=== PATIENT | male | born 1965 | race Two or more races ===

== ENCOUNTER 2021-11-27 12:53 | Inpatient (IN) | payer OTHER ==
[2021-11-27] MEDS ORDERED: ACETAMINOPHEN 325 MG TABLET (FP) PO PRN (14:27)
[2021-11-27] MEDS ORDERED: MAGNESIUM CITRATE 300 ML BOTTLE PO PRN (14:27)
[2021-11-27] MEDS ORDERED: MAGNESIUM HYDROX 2400MG/30ML ORAL SUSPENSION 30 ML CUP PO PRN (14:27)
[2021-11-27] MEDS ORDERED: DICYCLOMINE HCL 10 MG CAPSULE PO PRN (14:27)
[2021-11-27] MEDS ORDERED: methaDONE HCL 10 MG TABLET (FOR DETOX USE ONLY) PO ONE (14:27)
[2021-11-27] MEDS ORDERED: NALOXONE HCL (KLOXXADO) 8 MG SPRAY NS PRN (14:27)
[2021-11-27] MEDS ORDERED: MAG HYDROX/AL HYDROX/SIMETH 30 ML UNIT-DOSE CUP PO PRN (14:27)
[2021-11-27] MEDS ORDERED: ONDANSETRON *ODT* 4 MG TABLET SL PRN (14:27)
[2021-11-27] MEDS ORDERED: BISMUTH SUBSALICYLATE 262 MG/15 ML BTL PO PRN (14:27)
[2021-11-27] MEDS ORDERED: LOPERAMIDE HCL 2 MG CAPSULE PO PRN (14:27)
[2021-11-27] MEDS ORDERED: NICOTINE 10 MG CARTRIDGE (INHALER) IH PRN (14:27)
[2021-11-27 15:44] VITALS: BMI 18.2
[2021-11-27] MEDS: hydrOXYzine PAMOATE 25 MG CAPSULE (FP) PO SCH ×2 (18:21→22:32)
[2021-11-27] MEDS: diazePAM 5 MG TABLET PO SCH ×2 (18:21→22:32)
[2021-11-27] MEDS: ACETAMINOPHEN 325 MG TABLET (FP) PO PRN (18:22)
[2021-11-27] MEDS: cloNIDine HCL 0.1 MG TABLET PO PRN (18:22)
[2021-11-27] MEDS: THIAMINE HCL 100 MG TABLET (FP) PO SCH (22:32)
[2021-11-27] MEDS: MELATONIN 5 MG TABLETS PO SCH (22:32)
[2021-11-28] MEDS: hydrOXYzine PAMOATE 25 MG CAPSULE (FP) PO SCH ×5 (06:33→22:37)
[2021-11-28] MEDS: diazePAM 5 MG TABLET PO SCH ×4 (06:33→22:37)
[2021-11-28] MEDS: cloNIDine HCL 0.1 MG TABLET PO PRN (06:34)
[2021-11-28] MEDS ORDERED: methaDONE HCL 10 MG TABLET (FOR DETOX USE ONLY) ONE (09:41)
[2021-11-28 09:49] LABS: HEMATOCRIT 36.1 % (35.4-49); MCH 30.5 pg (25.7-33.7); MCHC 33.3 g/dl (32.0-35.9); MEAN CELL VOLUME 91.8 fl (80-96); MEAN PLT VOLUME 9.9 fl (7.5-11.1); PLATELET COUNT 167 10^3/uL (134-434); RBC 3.93 M/mm3 (4.00-5.60); WHITE BLOOD COUNT 9.2 K/mm3 (4.0-10.0)
[2021-11-28 10:01] LABS: ALBUMIN 2.5 g/dl (3.4-5.0); CALCIUM 8.2 mg/dL (8.5-10.1); CREATININE 0.9 mg/dL (0.55-1.3)
[2021-11-28 10:02] LABS: BILIRUBIN,TOTAL 0.3 mg/dL (0.2-1); TOT PROT 5.6 g/dl (6.4-8.2)
[2021-11-28] MEDS: PRENATAL VITAMINS W/ FOLIC ACID TABLET (FP) PO SCH (10:33)
[2021-11-28] MEDS: CALCIUM 500MG/VIT-D 200 UNITS COMBO TABLET (FP) PO SCH ×2 (14:19→22:37)
[2021-11-28] MEDS: ACETAMINOPHEN 325 MG TABLET (FP) PO PRN (17:34)
[2021-11-28] MEDS: METHOCARBAMOL 500 MG TABLET PO PRN (17:35)
[2021-11-28] MEDS: MELATONIN 5 MG TABLETS PO SCH (22:37)
[2021-11-28] MEDS: THIAMINE HCL 100 MG TABLET (FP) PO SCH (22:37)
[2021-11-28] MEDS: IBUPROFEN 400 MG TABLET (FP) PO PRN (22:38)
[2021-11-29 06:06] LABS: SARS-CoV-2 NAA Not Detected (Not Detected)
[2021-11-29] MEDS: diazePAM 5 MG TABLET PO SCH ×3 (06:17→22:12)
[2021-11-29] MEDS: hydrOXYzine PAMOATE 25 MG CAPSULE (FP) PO SCH ×5 (06:18→22:12)
[2021-11-29] MEDS ORDERED: methaDONE HCL 10 MG TABLET (FOR DETOX USE ONLY) PO ONE (10:00)
[2021-11-29] MEDS: CALCIUM 500MG/VIT-D 200 UNITS COMBO TABLET (FP) PO SCH ×2 (10:05→22:12)
[2021-11-29] MEDS: PRENATAL VITAMINS W/ FOLIC ACID TABLET (FP) PO SCH (10:05)
[2021-11-29] MEDS: guaiFENesin 200 MG/10 ML 10 ML UNIT-DOSE CUPS PO PRN ×3 (11:23→22:13)
[2021-11-29] MEDS: diazePAM 5 MG TABLET PO PRN (17:48)
[2021-11-29] MEDS: ACETAMINOPHEN 325 MG TABLET (FP) PO PRN (17:48)
[2021-11-29] MEDS: METHOCARBAMOL 500 MG TABLET PO PRN (19:17)
[2021-11-29] MEDS: THIAMINE HCL 100 MG TABLET (FP) PO SCH (22:12)
[2021-11-29] MEDS: MELATONIN 5 MG TABLETS PO SCH (22:12)
[2021-11-30] MEDS: hydrOXYzine PAMOATE 25 MG CAPSULE (FP) PO SCH ×5 (05:46→22:18)
[2021-11-30] MEDS: diazePAM 5 MG TABLET PO SCH ×2 (05:46→17:19)
[2021-11-30] MEDS: diazePAM 5 MG TABLET PO PRN (07:34)
[2021-11-30] MEDS: METHOCARBAMOL 500 MG TABLET PO PRN ×2 (07:34→22:18)
[2021-11-30] MEDS ORDERED: methaDONE HCL 10 MG TABLET (FOR DETOX USE ONLY) ONE (10:14)
[2021-11-30] MEDS: CALCIUM 500MG/VIT-D 200 UNITS COMBO TABLET (FP) PO SCH ×2 (10:16→22:18)
[2021-11-30] MEDS: PRENATAL VITAMINS W/ FOLIC ACID TABLET (FP) PO SCH (10:17)
[2021-11-30] MEDS: guaiFENesin 200 MG/10 ML 10 ML UNIT-DOSE CUPS PO PRN ×2 (15:15→19:04)
[2021-11-30] MEDS: BENZOCAINE/MENTHOL (CHLORASEPTIC ) LOZENGE MM PRN ×2 (15:16→19:04)
[2021-11-30] MEDS: MELATONIN 5 MG TABLETS PO SCH (22:18)
[2021-11-30] MEDS: THIAMINE HCL 100 MG TABLET (FP) PO SCH (22:18)
[2021-11-30] MEDS: IBUPROFEN 400 MG TABLET (FP) PO PRN (22:19)
[2021-12-01] MEDS: hydrOXYzine PAMOATE 25 MG CAPSULE (FP) PO SCH ×2 (05:11→10:05)
[2021-12-01] MEDS: guaiFENesin 200 MG/10 ML 10 ML UNIT-DOSE CUPS PO PRN ×4 (05:13→22:06)
[2021-12-01] MEDS: BENZOCAINE/MENTHOL (CHLORASEPTIC ) LOZENGE MM PRN ×3 (05:13→16:36)
[2021-12-01] MEDS ORDERED: diazePAM 5 MG TABLET PO ONE (06:00)
[2021-12-01] MEDS ORDERED: methaDONE HCL 10 MG TABLET (FOR DETOX USE ONLY) PO ONE (10:00)
[2021-12-01] MEDS: PRENATAL VITAMINS W/ FOLIC ACID TABLET (FP) PO SCH (10:05)
[2021-12-01] MEDS: CALCIUM 500MG/VIT-D 200 UNITS COMBO TABLET (FP) PO SCH ×2 (10:05→22:06)
[2021-12-01] MEDS: diazePAM 5 MG TABLET PO PRN ×2 (12:20→18:34)
[2021-12-01] MEDS: hydrOXYzine PAMOATE 25 MG CAPSULE (FP) PO PRN ×2 (16:36→22:06)
[2021-12-01] MEDS: MELATONIN 5 MG TABLETS PO SCH (22:06)
[2021-12-01] MEDS: METHOCARBAMOL 500 MG TABLET PO PRN (22:06)
[2021-12-01] MEDS: THIAMINE HCL 100 MG TABLET (FP) PO SCH (22:06)
[2021-12-01] MEDS: IBUPROFEN 400 MG TABLET (FP) PO PRN (22:06)
[2021-12-02] MEDS: diazePAM 5 MG TABLET PO PRN ×2 (02:32→06:14)
[2021-12-02] MEDS: METHOCARBAMOL 500 MG TABLET PO PRN (09:44)
[2021-12-02] MEDS: CALCIUM 500MG/VIT-D 200 UNITS COMBO TABLET (FP) PO SCH (09:45)
[2021-12-02] MEDS: hydrOXYzine PAMOATE 25 MG CAPSULE (FP) PO PRN (09:45)
[2021-12-02] MEDS: PRENATAL VITAMINS W/ FOLIC ACID TABLET (FP) PO SCH (09:45)
[2021-12-02 12:32] VITALS: BP 114/66; PULSE 74; TEMP 97.8
== END 2021-12-02 12:50 | disposition other institution (70) | DRG 773 ==
LOC: YASAS 12:53 → Y3N 17:45
PROVIDERS: ADMIT Allergy & Immunology; ATTEND Allergy & Immunology
PROC: HZ2ZZZZ Detoxification Services for Substance Abuse Treatment (ICD-10-PCS; principal; 2021-11-27)
DX: F11.23 Opioid dependence with withdrawal (principal); F13.230 Sedative, hypnotic or anxiolytic dependence with withdrawal, uncomplicated; F10.230 Alcohol dependence with withdrawal, uncomplicated; F17.210 Nicotine dependence, cigarettes, uncomplicated; I10 Essential (primary) hypertension; R63.4 Abnormal weight loss; Z68.1 Body mass index [BMI] 19.9 or less, adult; Z86.11 Personal history of tuberculosis; Z87.19 Personal history of other diseases of the digestive system; Z88.8 Allergy status to other drugs, medicaments and biological substances
CPT/HCPCS: 36415; 71046-TC-FY; 80053; 85027; 86780; 87811; 93005; 93010; C9803-CS; J0735; U0003; U0005

== ENCOUNTER 2021-12-02 12:58 | Inpatient (IN) | payer OTHER ==
[2021-12-02] MEDS ORDERED: MAG HYDROX/AL HYDROX/SIMETH 30 ML UNIT-DOSE CUP PO PRN (15:07)
[2021-12-02] MEDS ORDERED: MAGNESIUM CITRATE 300 ML BOTTLE PO PRN (15:07)
[2021-12-02] MEDS ORDERED: ACETAMINOPHEN 325 MG TABLET (FP) PO PRN (15:07)
[2021-12-02] MEDS ORDERED: LOPERAMIDE HCL 2 MG CAPSULE PO PRN (15:07)
[2021-12-02] MEDS ORDERED: P-EPHED 60MG/TRIPROLIDI 2.5MG TABLET PO PRN (15:07)
[2021-12-02] MEDS ORDERED: MAGNESIUM HYDROX 2400MG/30ML ORAL SUSPENSION 30 ML CUP PO PRN (15:07)
[2021-12-02] MEDS: hydrOXYzine PAMOATE 25 MG CAPSULE (FP) PO PRN ×2 (15:26→21:33)
[2021-12-02] MEDS: MELATONIN 5 MG TABLETS PO SCH (21:32)
[2021-12-02] MEDS: THIAMINE HCL 100 MG TABLET (FP) PO SCH (21:32)
[2021-12-02] MEDS: CALCIUM 500MG/VIT-D 200 UNITS COMBO TABLET (FP) PO SCH (22:01)
[2021-12-02] MEDS: guaiFENesin 200 MG/10 ML 10 ML UNIT-DOSE CUPS PO PRN (22:03)
[2021-12-02] MEDS: BENZOCAINE/MENTHOL (CHLORASEPTIC ) LOZENGE MM PRN (22:04)
[2021-12-03] MEDS: hydrOXYzine PAMOATE 25 MG CAPSULE (FP) PO PRN (06:19)
[2021-12-03] MEDS: guaiFENesin 200 MG/10 ML 10 ML UNIT-DOSE CUPS PO PRN (06:20)
[2021-12-03] MEDS: PRENATAL VITAMINS W/ FOLIC ACID TABLET (FP) PO SCH (10:30)
[2021-12-03] MEDS: CALCIUM 500MG/VIT-D 200 UNITS COMBO TABLET (FP) PO SCH ×2 (10:31→21:50)
[2021-12-03] MEDS: hydrOXYzine PAMOATE 50 MG CAPSULE (FP) PO PRN ×2 (10:33→21:40)
[2021-12-03] MEDS: NICOTINE 10 MG CARTRIDGE (INHALER) IH PRN (12:30)
[2021-12-03] MEDS: MELATONIN 5 MG TABLETS PO SCH (21:37)
[2021-12-03] MEDS: THIAMINE HCL 100 MG TABLET (FP) PO SCH (21:37)
[2021-12-03] MEDS: SUVOREXANT 10 MG TABLET PO PRN (21:39)
[2021-12-04] MEDS: PRENATAL VITAMINS W/ FOLIC ACID TABLET (FP) PO SCH (10:23)
[2021-12-04] MEDS: hydrOXYzine PAMOATE 50 MG CAPSULE (FP) PO PRN ×2 (10:23→18:51)
[2021-12-04] MEDS: CALCIUM 500MG/VIT-D 200 UNITS COMBO TABLET (FP) PO SCH ×2 (10:44→21:03)
[2021-12-04] MEDS ORDERED: BUPRENORPHINE HCL 75 MCG FILM BC ONE ×2 (15:00)
[2021-12-04] MEDS: MELATONIN 5 MG TABLETS PO SCH (21:03)
[2021-12-04] MEDS: THIAMINE HCL 100 MG TABLET (FP) PO SCH (21:04)
[2021-12-04] MEDS: SUVOREXANT 10 MG TABLET PO PRN (21:08)
[2021-12-05] MEDS: hydrOXYzine PAMOATE 50 MG CAPSULE (FP) PO PRN ×3 (01:43→21:37)
[2021-12-05] MEDS: PRENATAL VITAMINS W/ FOLIC ACID TABLET (FP) PO SCH (10:24)
[2021-12-05] MEDS: CALCIUM 500MG/VIT-D 200 UNITS COMBO TABLET (FP) PO SCH ×2 (10:25→21:37)
[2021-12-05] MEDS ORDERED: BUPRENORPHINE HCL 450 MCG FILM BC ONE (10:30)
[2021-12-05 10:39] LABS: CALCIUM 8.9 mg/dL (8.5-10.1)
[2021-12-05 10:40] LABS: INR 1.2 (0.83-1.09); PROTHROMBIN TIME (PATIENT) 13.8 SEC (9.7-13.0)
[2021-12-05 10:43] LABS: CREATININE 1.1 mg/dL (0.55-1.3)
[2021-12-05 10:44] LABS: TOT PROT 7.5 g/dl (6.4-8.2)
[2021-12-05 10:45] LABS: BILIRUBIN,TOTAL 0.2 mg/dL (0.2-1)
[2021-12-05] MEDS: guaiFENesin 200 MG/10 ML 10 ML UNIT-DOSE CUPS PO PRN ×2 (14:50→21:39)
[2021-12-05] MEDS: BENZOCAINE/MENTHOL (CHLORASEPTIC ) LOZENGE MM PRN (14:51)
[2021-12-05] MEDS: THIAMINE HCL 100 MG TABLET (FP) PO SCH (21:37)
[2021-12-05] MEDS: MELATONIN 5 MG TABLETS PO SCH (21:37)
[2021-12-06] MEDS: hydrOXYzine PAMOATE 50 MG CAPSULE (FP) PO PRN ×3 (01:07→21:31)
[2021-12-06] MEDS: IBUPROFEN 400 MG TABLET (FP) PO PRN (01:07)
[2021-12-06] MEDS ORDERED: BUPRENORPHINE/NALOXONE 2 MG/0.5 MG FILM PACKET SL SCH (10:00)
[2021-12-06] MEDS: CALCIUM 500MG/VIT-D 200 UNITS COMBO TABLET (FP) PO SCH ×2 (10:23→21:31)
[2021-12-06] MEDS: PRENATAL VITAMINS W/ FOLIC ACID TABLET (FP) PO SCH (10:23)
[2021-12-06] MEDS: THIAMINE HCL 100 MG TABLET (FP) PO SCH (21:29)
[2021-12-06] MEDS: MELATONIN 5 MG TABLETS PO SCH (21:29)
[2021-12-07] MEDS: BUPRENORPHINE/NALOXONE 4 MG/1 MG FILM PACKET SL SCH (09:58)
[2021-12-07] MEDS: PRENATAL VITAMINS W/ FOLIC ACID TABLET (FP) PO SCH (09:58)
[2021-12-07] MEDS: CALCIUM 500MG/VIT-D 200 UNITS COMBO TABLET (FP) PO SCH ×2 (09:58→21:33)
[2021-12-07] MEDS: IBUPROFEN 400 MG TABLET (FP) PO PRN (15:29)
[2021-12-07] MEDS: hydrOXYzine PAMOATE 50 MG CAPSULE (FP) PO PRN ×2 (15:29→21:35)
[2021-12-07] MEDS: THIAMINE HCL 100 MG TABLET (FP) PO SCH (21:33)
[2021-12-07] MEDS: SUVOREXANT 10 MG TABLET PO PRN (21:35)
[2021-12-07] MEDS: MELATONIN 5 MG TABLETS PO SCH (21:38)
[2021-12-08 00:06] LABS: SARS-CoV-2 NAA Not Detected (Not Detected)
[2021-12-08] MEDS: BUPRENORPHINE/NALOXONE 4 MG/1 MG FILM PACKET SL SCH (09:56)
[2021-12-08] MEDS: PRENATAL VITAMINS W/ FOLIC ACID TABLET (FP) PO SCH (09:57)
[2021-12-08] MEDS: CALCIUM 500MG/VIT-D 200 UNITS COMBO TABLET (FP) PO SCH ×2 (09:57→21:29)
[2021-12-08] MEDS: hydrOXYzine PAMOATE 50 MG CAPSULE (FP) PO PRN ×2 (09:58→21:31)
[2021-12-08] MEDS: THIAMINE HCL 100 MG TABLET (FP) PO SCH (21:29)
[2021-12-08] MEDS: MELATONIN 5 MG TABLETS PO SCH (21:29)
[2021-12-08] MEDS: SUVOREXANT 10 MG TABLET PO PRN (21:30)
[2021-12-09] MEDS: BUPRENORPHINE/NALOXONE 4 MG/1 MG FILM PACKET SL SCH (10:23)
[2021-12-09] MEDS: CALCIUM 500MG/VIT-D 200 UNITS COMBO TABLET (FP) PO SCH ×2 (10:23→21:46)
[2021-12-09] MEDS: PRENATAL VITAMINS W/ FOLIC ACID TABLET (FP) PO SCH (10:23)
[2021-12-09] MEDS: hydrOXYzine PAMOATE 50 MG CAPSULE (FP) PO PRN ×2 (10:24→21:47)
[2021-12-09] MEDS: MELATONIN 5 MG TABLETS PO SCH (21:47)
[2021-12-09] MEDS: THIAMINE HCL 100 MG TABLET (FP) PO SCH (21:47)
[2021-12-09] MEDS: SUVOREXANT 10 MG TABLET PO PRN (21:47)
[2021-12-10] MEDS: CALCIUM 500MG/VIT-D 200 UNITS COMBO TABLET (FP) PO SCH ×2 (09:58→21:25)
[2021-12-10] MEDS: PRENATAL VITAMINS W/ FOLIC ACID TABLET (FP) PO SCH (09:58)
[2021-12-10] MEDS: NICOTINE 10 MG CARTRIDGE (INHALER) IH PRN (09:59)
[2021-12-10] MEDS: BUPRENORPHINE/NALOXONE 8 MG/2 MG FILM PACKET SL SCH (09:59)
[2021-12-10] MEDS: hydrOXYzine PAMOATE 50 MG CAPSULE (FP) PO PRN ×2 (10:00→21:27)
[2021-12-10] MEDS: THIAMINE HCL 100 MG TABLET (FP) PO SCH (21:25)
[2021-12-10] MEDS: MELATONIN 5 MG TABLETS PO SCH (21:25)
[2021-12-10] MEDS: SUVOREXANT 10 MG TABLET PO PRN (21:27)
[2021-12-11] MEDS: CALCIUM 500MG/VIT-D 200 UNITS COMBO TABLET (FP) PO SCH ×2 (10:05→21:32)
[2021-12-11] MEDS: PRENATAL VITAMINS W/ FOLIC ACID TABLET (FP) PO SCH (10:05)
[2021-12-11] MEDS: BUPRENORPHINE/NALOXONE 8 MG/2 MG FILM PACKET SL SCH (10:05)
[2021-12-11] MEDS: hydrOXYzine PAMOATE 50 MG CAPSULE (FP) PO PRN ×2 (10:06→21:36)
[2021-12-11] MEDS: MELATONIN 5 MG TABLETS PO SCH (21:32)
[2021-12-11] MEDS: THIAMINE HCL 100 MG TABLET (FP) PO SCH (21:32)
[2021-12-11] MEDS: SUVOREXANT 10 MG TABLET PO PRN (21:36)
[2021-12-12] MEDS: PRENATAL VITAMINS W/ FOLIC ACID TABLET (FP) PO SCH (10:15)
[2021-12-12] MEDS: CALCIUM 500MG/VIT-D 200 UNITS COMBO TABLET (FP) PO SCH ×2 (10:15→21:26)
[2021-12-12] MEDS: BUPRENORPHINE/NALOXONE 8 MG/2 MG FILM PACKET SL SCH (10:17)
[2021-12-12] MEDS: hydrOXYzine PAMOATE 50 MG CAPSULE (FP) PO PRN ×2 (10:17→21:27)
[2021-12-12] MEDS: THIAMINE HCL 100 MG TABLET (FP) PO SCH (21:26)
[2021-12-12] MEDS: MELATONIN 5 MG TABLETS PO SCH (21:28)
[2021-12-12] MEDS: SUVOREXANT 10 MG TABLET PO PRN (21:28)
[2021-12-13] MEDS: hydrOXYzine PAMOATE 50 MG CAPSULE (FP) PO PRN ×2 (10:12→21:22)
[2021-12-13] MEDS: CALCIUM 500MG/VIT-D 200 UNITS COMBO TABLET (FP) PO SCH ×2 (10:12→21:20)
[2021-12-13] MEDS: PRENATAL VITAMINS W/ FOLIC ACID TABLET (FP) PO SCH (10:12)
[2021-12-13] MEDS: BUPRENORPHINE/NALOXONE 8 MG/2 MG FILM PACKET SL SCH (10:12)
[2021-12-13] MEDS: MELATONIN 5 MG TABLETS PO SCH (21:20)
[2021-12-13] MEDS: THIAMINE HCL 100 MG TABLET (FP) PO SCH (21:20)
[2021-12-13] MEDS: SUVOREXANT 10 MG TABLET PO PRN (21:22)
[2021-12-14] MEDS: PRENATAL VITAMINS W/ FOLIC ACID TABLET (FP) PO SCH (10:20)
[2021-12-14] MEDS: CALCIUM 500MG/VIT-D 200 UNITS COMBO TABLET (FP) PO SCH ×2 (10:20→22:04)
[2021-12-14] MEDS: hydrOXYzine PAMOATE 50 MG CAPSULE (FP) PO PRN ×2 (10:21→22:04)
[2021-12-14] MEDS: BUPRENORPHINE/NALOXONE 8 MG/2 MG FILM PACKET SL SCH (10:21)
[2021-12-14] MEDS: SUVOREXANT 10 MG TABLET PO PRN (22:04)
[2021-12-14] MEDS: MELATONIN 5 MG TABLETS PO SCH (22:04)
[2021-12-14] MEDS: THIAMINE HCL 100 MG TABLET (FP) PO SCH (22:04)
[2021-12-15] MEDS: PRENATAL VITAMINS W/ FOLIC ACID TABLET (FP) PO SCH (10:20)
[2021-12-15] MEDS: BUPRENORPHINE/NALOXONE 8 MG/2 MG FILM PACKET SL SCH (10:21)
[2021-12-15] MEDS: CALCIUM 500MG/VIT-D 200 UNITS COMBO TABLET (FP) PO SCH ×2 (10:21→22:18)
[2021-12-15] MEDS: NICOTINE 10 MG CARTRIDGE (INHALER) IH PRN (10:21)
[2021-12-15] MEDS: hydrOXYzine PAMOATE 50 MG CAPSULE (FP) PO PRN ×2 (10:22→22:19)
[2021-12-15] MEDS ORDERED: hydrOXYzine PAMOATE 25 MG CAPSULE (FP) PO ONE (10:57)
[2021-12-15] MEDS: MELATONIN 5 MG TABLETS PO SCH (22:17)
[2021-12-15] MEDS: THIAMINE HCL 100 MG TABLET (FP) PO SCH (22:18)
[2021-12-16] MEDS: BUPRENORPHINE/NALOXONE 8 MG/2 MG FILM PACKET SL SCH (10:24)
[2021-12-16] MEDS: PRENATAL VITAMINS W/ FOLIC ACID TABLET (FP) PO SCH (10:24)
[2021-12-16] MEDS: CALCIUM 500MG/VIT-D 200 UNITS COMBO TABLET (FP) PO SCH ×2 (10:24→21:40)
[2021-12-16] MEDS ORDERED: hydrOXYzine PAMOATE 25 MG CAPSULE (FP) PO ONE (10:25)
[2021-12-16] MEDS: hydrOXYzine PAMOATE 50 MG CAPSULE (FP) PO PRN ×2 (10:25→21:40)
[2021-12-16] MEDS: MELATONIN 5 MG TABLETS PO SCH (21:40)
[2021-12-16] MEDS: THIAMINE HCL 100 MG TABLET (FP) PO SCH (21:40)
[2021-12-16] MEDS: SUVOREXANT 10 MG TABLET PO PRN (21:40)
[2021-12-17] MEDS: CALCIUM 500MG/VIT-D 200 UNITS COMBO TABLET (FP) PO SCH ×2 (10:14→22:05)
[2021-12-17] MEDS: BUPRENORPHINE/NALOXONE 8 MG/2 MG FILM PACKET SL SCH (10:14)
[2021-12-17] MEDS: PRENATAL VITAMINS W/ FOLIC ACID TABLET (FP) PO SCH (10:14)
[2021-12-17] MEDS: hydrOXYzine PAMOATE 50 MG CAPSULE (FP) PO PRN ×2 (10:15→22:04)
[2021-12-17] MEDS: MELATONIN 5 MG TABLETS PO SCH (22:04)
[2021-12-17] MEDS: NICOTINE 10 MG CARTRIDGE (INHALER) IH PRN (22:04)
[2021-12-17] MEDS: THIAMINE HCL 100 MG TABLET (FP) PO SCH (22:05)
[2021-12-17] MEDS: SUVOREXANT 10 MG TABLET PO PRN (22:05)
[2021-12-18] MEDS: PRENATAL VITAMINS W/ FOLIC ACID TABLET (FP) PO SCH (10:03)
[2021-12-18] MEDS: BUPRENORPHINE/NALOXONE 8 MG/2 MG FILM PACKET SL SCH (10:04)
[2021-12-18] MEDS: CALCIUM 500MG/VIT-D 200 UNITS COMBO TABLET (FP) PO SCH ×2 (10:04→21:30)
[2021-12-18] MEDS: hydrOXYzine PAMOATE 50 MG CAPSULE (FP) PO PRN ×2 (10:04→21:31)
[2021-12-18] MEDS: NICOTINE 10 MG CARTRIDGE (INHALER) IH PRN (21:29)
[2021-12-18] MEDS: MELATONIN 5 MG TABLETS PO SCH (21:29)
[2021-12-18] MEDS: THIAMINE HCL 100 MG TABLET (FP) PO SCH (21:29)
[2021-12-18] MEDS: SUVOREXANT 10 MG TABLET PO PRN (21:30)
[2021-12-19] MEDS: PRENATAL VITAMINS W/ FOLIC ACID TABLET (FP) PO SCH (10:35)
[2021-12-19] MEDS: hydrOXYzine PAMOATE 50 MG CAPSULE (FP) PO PRN ×2 (10:36→21:39)
[2021-12-19] MEDS: CALCIUM 500MG/VIT-D 200 UNITS COMBO TABLET (FP) PO SCH ×2 (10:36→21:39)
[2021-12-19] MEDS: BUPRENORPHINE/NALOXONE 8 MG/2 MG FILM PACKET SL SCH (10:37)
[2021-12-19] MEDS: MELATONIN 5 MG TABLETS PO SCH (21:38)
[2021-12-19] MEDS: THIAMINE HCL 100 MG TABLET (FP) PO SCH (21:39)
[2021-12-19] MEDS: SUVOREXANT 10 MG TABLET PO PRN (21:40)
[2021-12-20] MEDS: BUPRENORPHINE/NALOXONE 8 MG/2 MG FILM PACKET SL SCH (10:07)
[2021-12-20] MEDS: CALCIUM 500MG/VIT-D 200 UNITS COMBO TABLET (FP) PO SCH ×2 (10:07→21:59)
[2021-12-20] MEDS: PRENATAL VITAMINS W/ FOLIC ACID TABLET (FP) PO SCH (10:07)
[2021-12-20] MEDS: hydrOXYzine PAMOATE 50 MG CAPSULE (FP) PO PRN ×2 (10:07→21:59)
[2021-12-20] MEDS: MELATONIN 5 MG TABLETS PO SCH (21:56)
[2021-12-20] MEDS: SUVOREXANT 10 MG TABLET PO PRN (21:59)
[2021-12-20] MEDS: NICOTINE 10 MG CARTRIDGE (INHALER) IH PRN (21:59)
[2021-12-20] MEDS: THIAMINE HCL 100 MG TABLET (FP) PO SCH (21:59)
[2021-12-21] MEDS: CALCIUM 500MG/VIT-D 200 UNITS COMBO TABLET (FP) PO SCH ×2 (10:25→21:31)
[2021-12-21] MEDS: PRENATAL VITAMINS W/ FOLIC ACID TABLET (FP) PO SCH (10:25)
[2021-12-21] MEDS: BUPRENORPHINE/NALOXONE 8 MG/2 MG FILM PACKET SL SCH (10:25)
[2021-12-21] MEDS: hydrOXYzine PAMOATE 50 MG CAPSULE (FP) PO PRN ×2 (10:25→21:32)
[2021-12-21] MEDS: THIAMINE HCL 100 MG TABLET (FP) PO SCH (21:31)
[2021-12-21] MEDS: SUVOREXANT 10 MG TABLET PO PRN (21:32)
[2021-12-21] MEDS: MELATONIN 5 MG TABLETS PO SCH (21:33)
[2021-12-22] MEDS: hydrOXYzine PAMOATE 50 MG CAPSULE (FP) PO PRN ×2 (10:08→21:31)
[2021-12-22] MEDS: CALCIUM 500MG/VIT-D 200 UNITS COMBO TABLET (FP) PO SCH ×2 (10:08→21:29)
[2021-12-22] MEDS: PRENATAL VITAMINS W/ FOLIC ACID TABLET (FP) PO SCH (10:08)
[2021-12-22] MEDS: BUPRENORPHINE/NALOXONE 8 MG/2 MG FILM PACKET SL SCH (10:08)
[2021-12-22] MEDS: MELATONIN 5 MG TABLETS PO SCH (21:29)
[2021-12-22] MEDS: THIAMINE HCL 100 MG TABLET (FP) PO SCH (21:30)
[2021-12-22] MEDS: SUVOREXANT 10 MG TABLET PO PRN (21:30)
[2021-12-22] MEDS: NICOTINE 10 MG CARTRIDGE (INHALER) IH PRN (21:31)
[2021-12-23] MEDS ORDERED: hydrOXYzine PAMOATE 25 MG CAPSULE (FP) PO ONE (09:09)
[2021-12-23] MEDS: NICOTINE 10 MG CARTRIDGE (INHALER) IH PRN (10:30)
[2021-12-23] MEDS: hydrOXYzine PAMOATE 50 MG CAPSULE (FP) PO PRN ×2 (10:30→21:52)
[2021-12-23] MEDS: PRENATAL VITAMINS W/ FOLIC ACID TABLET (FP) PO SCH (10:30)
[2021-12-23] MEDS: CALCIUM 500MG/VIT-D 200 UNITS COMBO TABLET (FP) PO SCH ×2 (10:30→21:50)
[2021-12-23] MEDS: BUPRENORPHINE/NALOXONE 8 MG/2 MG FILM PACKET SL SCH (10:31)
[2021-12-23] MEDS: THIAMINE HCL 100 MG TABLET (FP) PO SCH (21:50)
[2021-12-23] MEDS: MELATONIN 5 MG TABLETS PO SCH (21:50)
[2021-12-23] MEDS: SUVOREXANT 10 MG TABLET PO PRN (21:51)
[2021-12-24] MEDS: CALCIUM 500MG/VIT-D 200 UNITS COMBO TABLET (FP) PO SCH ×2 (10:36→21:50)
[2021-12-24] MEDS: PRENATAL VITAMINS W/ FOLIC ACID TABLET (FP) PO SCH (10:36)
[2021-12-24] MEDS: BUPRENORPHINE/NALOXONE 8 MG/2 MG FILM PACKET SL SCH (10:36)
[2021-12-24] MEDS: hydrOXYzine PAMOATE 50 MG CAPSULE (FP) PO PRN ×2 (10:36→21:49)
[2021-12-24] MEDS: NICOTINE 10 MG CARTRIDGE (INHALER) IH PRN (10:37)
[2021-12-24] MEDS: SUVOREXANT 10 MG TABLET PO PRN (21:49)
[2021-12-24] MEDS: MELATONIN 5 MG TABLETS PO SCH (21:50)
[2021-12-24] MEDS: THIAMINE HCL 100 MG TABLET (FP) PO SCH (21:50)
[2021-12-25] MEDS: NICOTINE 10 MG CARTRIDGE (INHALER) IH PRN (10:19)
[2021-12-25] MEDS: hydrOXYzine PAMOATE 50 MG CAPSULE (FP) PO PRN ×2 (10:19→21:41)
[2021-12-25] MEDS: BUPRENORPHINE/NALOXONE 8 MG/2 MG FILM PACKET SL SCH (10:19)
[2021-12-25] MEDS: CALCIUM 500MG/VIT-D 200 UNITS COMBO TABLET (FP) PO SCH ×2 (10:19→21:40)
[2021-12-25] MEDS: PRENATAL VITAMINS W/ FOLIC ACID TABLET (FP) PO SCH (10:19)
[2021-12-25] MEDS: SUVOREXANT 10 MG TABLET PO PRN (21:40)
[2021-12-25] MEDS: MELATONIN 5 MG TABLETS PO SCH (21:40)
[2021-12-25] MEDS: THIAMINE HCL 100 MG TABLET (FP) PO SCH (21:40)
[2021-12-26] MEDS: hydrOXYzine PAMOATE 50 MG CAPSULE (FP) PO PRN ×2 (10:17→21:36)
[2021-12-26] MEDS: PRENATAL VITAMINS W/ FOLIC ACID TABLET (FP) PO SCH (10:17)
[2021-12-26] MEDS: BUPRENORPHINE/NALOXONE 8 MG/2 MG FILM PACKET SL SCH (10:17)
[2021-12-26] MEDS: NICOTINE 10 MG CARTRIDGE (INHALER) IH PRN ×2 (10:17→21:36)
[2021-12-26] MEDS: CALCIUM 500MG/VIT-D 200 UNITS COMBO TABLET (FP) PO SCH ×2 (10:17→21:34)
[2021-12-26] MEDS: THIAMINE HCL 100 MG TABLET (FP) PO SCH (21:34)
[2021-12-26] MEDS: SUVOREXANT 10 MG TABLET PO PRN (21:35)
[2021-12-26] MEDS: MELATONIN 5 MG TABLETS PO SCH (21:36)
[2021-12-27] MEDS: CALCIUM 500MG/VIT-D 200 UNITS COMBO TABLET (FP) PO SCH ×2 (10:15→21:33)
[2021-12-27] MEDS: PRENATAL VITAMINS W/ FOLIC ACID TABLET (FP) PO SCH (10:15)
[2021-12-27] MEDS: hydrOXYzine PAMOATE 50 MG CAPSULE (FP) PO PRN ×2 (10:15→21:34)
[2021-12-27] MEDS: BUPRENORPHINE/NALOXONE 8 MG/2 MG FILM PACKET SL SCH (10:15)
[2021-12-27] MEDS: THIAMINE HCL 100 MG TABLET (FP) PO SCH (21:33)
[2021-12-27] MEDS: MELATONIN 5 MG TABLETS PO SCH (21:33)
[2021-12-27] MEDS: SUVOREXANT 10 MG TABLET PO PRN (21:34)
[2021-12-28] MEDS: PRENATAL VITAMINS W/ FOLIC ACID TABLET (FP) PO SCH (10:22)
[2021-12-28] MEDS: hydrOXYzine PAMOATE 50 MG CAPSULE (FP) PO PRN ×2 (10:22→21:36)
[2021-12-28] MEDS: CALCIUM 500MG/VIT-D 200 UNITS COMBO TABLET (FP) PO SCH ×2 (10:22→21:36)
[2021-12-28] MEDS: BUPRENORPHINE/NALOXONE 8 MG/2 MG FILM PACKET SL SCH (10:22)
[2021-12-28] MEDS: SUVOREXANT 10 MG TABLET PO PRN (21:35)
[2021-12-28] MEDS: MELATONIN 5 MG TABLETS PO SCH (21:36)
[2021-12-28] MEDS: NICOTINE 10 MG CARTRIDGE (INHALER) IH PRN (21:36)
[2021-12-28] MEDS: THIAMINE HCL 100 MG TABLET (FP) PO SCH (21:36)
[2021-12-29] MEDS: PRENATAL VITAMINS W/ FOLIC ACID TABLET (FP) PO SCH (10:04)
[2021-12-29] MEDS: hydrOXYzine PAMOATE 50 MG CAPSULE (FP) PO PRN ×2 (10:05→21:42)
[2021-12-29] MEDS: BUPRENORPHINE/NALOXONE 8 MG/2 MG FILM PACKET SL SCH (10:05)
[2021-12-29] MEDS: CALCIUM 500MG/VIT-D 200 UNITS COMBO TABLET (FP) PO SCH ×2 (10:05→21:42)
[2021-12-29] MEDS: NICOTINE 10 MG CARTRIDGE (INHALER) IH PRN (10:05)
[2021-12-29] MEDS: THIAMINE HCL 100 MG TABLET (FP) PO SCH (21:42)
[2021-12-29] MEDS: MELATONIN 5 MG TABLETS PO SCH (21:42)
[2021-12-29] MEDS: SUVOREXANT 10 MG TABLET PO PRN (21:43)
[2021-12-30 07:11] VITALS: BP 119/77; PULSE 64; TEMP 97.8
[2021-12-30] MEDS: BUPRENORPHINE/NALOXONE 8 MG/2 MG FILM PACKET SL SCH (09:35)
[2021-12-30] MEDS: PRENATAL VITAMINS W/ FOLIC ACID TABLET (FP) PO SCH (09:35)
[2021-12-30] MEDS: CALCIUM 500MG/VIT-D 200 UNITS COMBO TABLET (FP) PO SCH (09:35)
[2021-12-30] MEDS: NICOTINE 10 MG CARTRIDGE (INHALER) IH PRN (09:36)
[2021-12-30] MEDS: hydrOXYzine PAMOATE 50 MG CAPSULE (FP) PO PRN (09:36)
== END 2021-12-30 09:50 | disposition home or self-care (01) | DRG 772 ==
LOC: YASAS 12:58 → Y5N 13:04
PROVIDERS: ADMIT Allergy & Immunology; ATTEND Psychiatry & Neurology Psychiatry
PROC: HZ42ZZZ Group Counseling for Substance Abuse Treatment, Cognitive-Behavioral (ICD-10-PCS; principal; 2021-12-02)
DX: F11.20 Opioid dependence, uncomplicated (principal); F10.20 Alcohol dependence, uncomplicated; F14.20 Cocaine dependence, uncomplicated; F17.210 Nicotine dependence, cigarettes, uncomplicated; F19.280 Other psychoactive substance dependence with psychoactive substance-induced anxiety disorder; F19.282 Other psychoactive substance dependence with psychoactive substance-induced sleep disorder; I10 Essential (primary) hypertension; R74.8 Abnormal levels of other serum enzymes; Z86.11 Personal history of tuberculosis; Z56.0 Unemployment, unspecified
CPT/HCPCS: 36415; 80053; 83036; 85610; C9803-CS; U0003; U0005

== ENCOUNTER 2022-03-05 13:42 | Inpatient (IN) | payer OTHER ==
[2022-03-05 14:24] VITALS: BMI 19.6
[2022-03-05] MEDS ORDERED: IBUPROFEN 400 MG TABLET (FP) PO PRN (16:59)
[2022-03-05] MEDS ORDERED: MAG HYDROX/AL HYDROX/SIMETH 30 ML UNIT-DOSE CUP PO PRN (16:59)
[2022-03-05] MEDS ORDERED: MAGNESIUM CITRATE 300 ML BOTTLE PO PRN (16:59)
[2022-03-05] MEDS ORDERED: BISMUTH SUBSALICYLATE 524 MG/30 ML PO PRN (16:59)
[2022-03-05] MEDS ORDERED: IBUPROFEN 600 MG TABLET (FP) PO PRN (16:59)
[2022-03-05] MEDS ORDERED: BENZOCAINE/MENTHOL (CHLORASEPTIC ) LOZENGE MM PRN (16:59)
[2022-03-05] MEDS ORDERED: ACETAMINOPHEN 325 MG TABLET (FP) PO PRN ×2 (16:59)
[2022-03-05] MEDS ORDERED: DICYCLOMINE HCL 10 MG CAPSULE PO PRN (16:59)
[2022-03-05] MEDS ORDERED: MAGNESIUM HYDROX 2400MG/30ML ORAL SUSPENSION 30 ML CUP PO PRN (16:59)
[2022-03-05] MEDS ORDERED: LOPERAMIDE HCL 2 MG CAPSULE PO PRN (16:59)
[2022-03-05] MEDS ORDERED: NICOTINE POLACRILEX 2 MG GUM BUC PRN (16:59)
[2022-03-05] MEDS ORDERED: NALOXONE HCL 0.4 MG/ML VIAL IM PRN (16:59)
[2022-03-05] MEDS ORDERED: ONDANSETRON *ODT* 4 MG TABLET SL PRN (16:59)
[2022-03-05] MEDS: hydrOXYzine PAMOATE 25 MG CAPSULE (FP) PO PRN ×2 (18:15→22:47)
[2022-03-05] MEDS: METHOCARBAMOL 500 MG TABLET PO PRN (18:15)
[2022-03-05] MEDS: MELATONIN 5 MG TABLETS PO SCH (22:46)
[2022-03-05] MEDS: THIAMINE HCL 100 MG TABLET (FP) PO SCH (22:46)
[2022-03-06] MEDS ORDERED: methaDONE 80 MG, methaDONE 10 MG PO SCH (09:03)
[2022-03-06] MEDS ORDERED: methaDONE HCL 10 MG TABLET PO SCH (09:30)
[2022-03-06] MEDS ORDERED: methaDONE HCL 40 MG DISPERSABLE TABLET ONE (09:45)
[2022-03-06] MEDS ORDERED: methaDONE HCL 10 MG TABLET ONE (09:45)
[2022-03-06] MEDS: NICOTINE 7 MG/24 HOURS TOPICAL PATCH TD SCH (10:20)
[2022-03-06] MEDS: PRENATAL VITAMINS W/ FOLIC ACID TABLET (FP) PO SCH (10:20)
[2022-03-06] MEDS: methaDONE 80 MG, methaDONE 10 MG PO SCH (10:20)
[2022-03-06] MEDS: hydrOXYzine PAMOATE 25 MG CAPSULE (FP) PO PRN (10:22)
[2022-03-06 10:33] LABS: HEMATOCRIT 37.4 % (35.4-49); HEMOGLOBIN 12.6 GM/dL (11.7-16.9); MCHC 33.6 g/dl (32.0-35.9); MEAN CELL VOLUME 92.2 fl (80-96); MEAN PLT VOLUME 9.5 fl (7.5-11.1); PLATELET COUNT 139 10^3/uL (134-434); RBC 4.05 M/mm3 (4.00-5.60); RDW 13.7 % (11.9-15.9); WHITE BLOOD COUNT 4.6 K/mm3 (4.0-10.0)
[2022-03-06 10:47] LABS: CALCIUM 8.8 mg/dL (8.5-10.1)
[2022-03-06 10:49] LABS: BLOOD UREA NITROGEN 17.5 mg/dL (7-18)
[2022-03-06 10:51] LABS: CREATININE 1.2 mg/dL (0.55-1.3)
[2022-03-06 10:52] LABS: BILIRUBIN,TOTAL 0.3 mg/dL (0.2-1); TOT PROT 6.1 g/dl (6.4-8.2)
[2022-03-06] MEDS ORDERED: chlordiazePOXIDE HCL 25 MG CAPSULE PO PRN (11:11)
[2022-03-06] MEDS: chlordiazePOXIDE HCL 25 MG CAPSULE PO SCH ×3 (11:22→22:25)
[2022-03-06] MEDS: MELATONIN 5 MG TABLETS PO SCH (22:25)
[2022-03-06] MEDS: THIAMINE HCL 100 MG TABLET (FP) PO SCH (22:26)
[2022-03-07] MEDS ORDERED: methaDONE HCL 10 MG TABLET ONE (03:20)
[2022-03-07] MEDS ORDERED: methaDONE HCL 40 MG DISPERSABLE TABLET ONE (03:20)
[2022-03-07] MEDS: chlordiazePOXIDE HCL 25 MG CAPSULE PO SCH ×4 (06:16→22:22)
[2022-03-07] MEDS: methaDONE 80 MG, methaDONE 10 MG PO SCH (06:16)
[2022-03-07] MEDS: PRENATAL VITAMINS W/ FOLIC ACID TABLET (FP) PO SCH (10:12)
[2022-03-07] MEDS: NICOTINE 7 MG/24 HOURS TOPICAL PATCH TD SCH (10:13)
[2022-03-07] MEDS: hydrOXYzine PAMOATE 25 MG CAPSULE (FP) PO PRN (18:25)
[2022-03-07] MEDS: THIAMINE HCL 100 MG TABLET (FP) PO SCH (22:22)
[2022-03-07] MEDS: MELATONIN 5 MG TABLETS PO SCH (22:22)
[2022-03-08] MEDS ORDERED: methaDONE HCL 40 MG DISPERSABLE TABLET ONE (03:13)
[2022-03-08] MEDS ORDERED: methaDONE HCL 10 MG TABLET ONE (03:13)
[2022-03-08] MEDS: chlordiazePOXIDE HCL 25 MG CAPSULE PO SCH ×4 (05:31→22:34)
[2022-03-08] MEDS: hydrOXYzine PAMOATE 25 MG CAPSULE (FP) PO PRN ×4 (05:31→22:35)
[2022-03-08] MEDS: methaDONE 80 MG, methaDONE 10 MG PO SCH (05:31)
[2022-03-08] MEDS: METHOCARBAMOL 500 MG TABLET PO PRN (10:39)
[2022-03-08] MEDS: NICOTINE 7 MG/24 HOURS TOPICAL PATCH TD SCH (10:39)
[2022-03-08] MEDS: PRENATAL VITAMINS W/ FOLIC ACID TABLET (FP) PO SCH (10:42)
[2022-03-08] MEDS: THIAMINE HCL 100 MG TABLET (FP) PO SCH (22:34)
[2022-03-08] MEDS: MELATONIN 5 MG TABLETS PO SCH (22:35)
[2022-03-09] MEDS ORDERED: chlordiazePOXIDE HCL 10 MG CAPSULE PO PRN
[2022-03-09] MEDS ORDERED: methaDONE HCL 10 MG TABLET ONE (04:11)
[2022-03-09] MEDS ORDERED: methaDONE HCL 40 MG DISPERSABLE TABLET ONE (04:11)
[2022-03-09] MEDS: methaDONE 80 MG, methaDONE 10 MG PO SCH (05:36)
[2022-03-09] MEDS: chlordiazePOXIDE HCL 10 MG CAPSULE PO SCH ×4 (05:37→22:35)
[2022-03-09] MEDS: PRENATAL VITAMINS W/ FOLIC ACID TABLET (FP) PO SCH (10:13)
[2022-03-09] MEDS: NICOTINE 7 MG/24 HOURS TOPICAL PATCH TD SCH (10:13)
[2022-03-09] MEDS: hydrOXYzine PAMOATE 25 MG CAPSULE (FP) PO PRN ×2 (10:14→22:36)
[2022-03-09] MEDS: MELATONIN 5 MG TABLETS PO SCH (22:36)
[2022-03-09] MEDS: THIAMINE HCL 100 MG TABLET (FP) PO SCH (22:37)
[2022-03-10] MEDS ORDERED: methaDONE HCL 10 MG TABLET ONE (04:47)
[2022-03-10] MEDS ORDERED: methaDONE HCL 40 MG DISPERSABLE TABLET ONE (04:47)
[2022-03-10] MEDS: methaDONE 80 MG, methaDONE 10 MG PO SCH (05:41)
[2022-03-10] MEDS: chlordiazePOXIDE HCL 10 MG CAPSULE PO SCH ×2 (05:42→17:47)
[2022-03-10] MEDS: hydrOXYzine PAMOATE 25 MG CAPSULE (FP) PO PRN ×3 (05:42→22:13)
[2022-03-10] MEDS: NICOTINE 7 MG/24 HOURS TOPICAL PATCH TD SCH (10:29)
[2022-03-10] MEDS: PRENATAL VITAMINS W/ FOLIC ACID TABLET (FP) PO SCH (10:29)
[2022-03-10] MEDS: THIAMINE HCL 100 MG TABLET (FP) PO SCH (22:13)
[2022-03-10] MEDS: MELATONIN 5 MG TABLETS PO SCH (22:13)
[2022-03-10] MEDS: METHOCARBAMOL 500 MG TABLET PO PRN (22:15)
[2022-03-11] MEDS ORDERED: methaDONE HCL 10 MG TABLET ONE (04:02)
[2022-03-11] MEDS ORDERED: methaDONE HCL 40 MG DISPERSABLE TABLET ONE (04:02)
[2022-03-11] MEDS ORDERED: chlordiazePOXIDE HCL 10 MG CAPSULE PO ONE (05:00)
[2022-03-11] MEDS: methaDONE 80 MG, methaDONE 10 MG PO SCH (05:36)
[2022-03-11 05:55] VITALS: PULSE 50; RESP 18
[2022-03-11 09:10] VITALS: BP 107/61; TEMP 97.7
[2022-03-11] MEDS: NICOTINE 7 MG/24 HOURS TOPICAL PATCH TD SCH (11:55)
[2022-03-11] MEDS: PRENATAL VITAMINS W/ FOLIC ACID TABLET (FP) PO SCH (11:56)
== END 2022-03-11 12:24 | disposition other institution (70) | DRG 773 ==
LOC: YASAS 13:42 → UNDOADMIN 16:41 → Y6N 16:41
PROVIDERS: ADMIT Allergy & Immunology; ATTEND Surgery
PROC: HZ2ZZZZ Detoxification Services for Substance Abuse Treatment (ICD-10-PCS; principal; 2022-03-05)
DX: F10.230 Alcohol dependence with withdrawal, uncomplicated (principal); F11.20 Opioid dependence, uncomplicated; F14.10 Cocaine abuse, uncomplicated; F17.213 Nicotine dependence, cigarettes, with withdrawal; I10 Essential (primary) hypertension; Z86.11 Personal history of tuberculosis
CPT/HCPCS: 36415; 80053; 84075; 84460; 85027; 86780; 87811; C9803-CS; U0003; U0005

== ENCOUNTER 2022-03-11 12:05 | Inpatient (IN) | payer OTHER ==
[~2022-03-11 12:05] MED LIST: ACETAMINOPHEN 325 MG TABLET (FP) PO PRN; IBUPROFEN 400 MG TABLET (FP) PO PRN; LOPERAMIDE HCL 2 MG CAPSULE PO PRN; MAG HYDROX/AL HYDROX/SIMETH 30 ML UNIT-DOSE CUP PO PRN; MAGNESIUM CITRATE 300 ML BOTTLE PO PRN; MAGNESIUM HYDROX 2400MG/30ML ORAL SUSPENSION 30 ML CUP PO PRN; NICOTINE 10 MG CARTRIDGE (INHALER) IH PRN; NICOTINE POLACRILEX 2 MG GUM BUC PRN; P-EPHED 60MG/TRIPROLIDI 2.5MG TABLET PO PRN; guaiFENesin 200 MG/10 ML 10 ML UNIT-DOSE CUPS PO PRN
[2022-03-11] MEDS: MELATONIN 5 MG TABLETS PO SCH (21:24)
[2022-03-11] MEDS: THIAMINE HCL 100 MG TABLET (FP) PO SCH (21:24)
[2022-03-12] MEDS ORDERED: methaDONE HCL 10 MG TABLET PO SCH (06:00)
[2022-03-12] MEDS: methaDONE 80 MG, methaDONE 10 MG PO SCH (06:08)
[2022-03-12] MEDS: PRENATAL VITAMINS W/ FOLIC ACID TABLET (FP) PO SCH (09:56)
[2022-03-12] MEDS: hydrOXYzine PAMOATE 25 MG CAPSULE (FP) PO PRN ×2 (09:56→21:09)
[2022-03-12] MEDS: NICOTINE 7 MG/24 HOURS TOPICAL PATCH TD SCH (09:56)
[2022-03-12] MEDS: MELATONIN 5 MG TABLETS PO SCH (21:09)
[2022-03-12] MEDS: THIAMINE HCL 100 MG TABLET (FP) PO SCH (21:09)
[2022-03-13] MEDS: hydrOXYzine PAMOATE 25 MG CAPSULE (FP) PO PRN ×2 (06:18→21:18)
[2022-03-13] MEDS: methaDONE 80 MG, methaDONE 10 MG PO SCH (06:18)
[2022-03-13] MEDS: PRENATAL VITAMINS W/ FOLIC ACID TABLET (FP) PO SCH (09:57)
[2022-03-13] MEDS: NICOTINE 7 MG/24 HOURS TOPICAL PATCH TD SCH (09:57)
[2022-03-13] MEDS: MELATONIN 5 MG TABLETS PO SCH (21:17)
[2022-03-13] MEDS: THIAMINE HCL 100 MG TABLET (FP) PO SCH (21:17)
[2022-03-14] MEDS: hydrOXYzine PAMOATE 25 MG CAPSULE (FP) PO PRN ×2 (06:08→21:29)
[2022-03-14] MEDS: methaDONE 80 MG, methaDONE 10 MG PO SCH (06:08)
[2022-03-14] MEDS: NICOTINE 7 MG/24 HOURS TOPICAL PATCH TD SCH (09:48)
[2022-03-14] MEDS: PRENATAL VITAMINS W/ FOLIC ACID TABLET (FP) PO SCH (09:48)
[2022-03-14] MEDS: THIAMINE HCL 100 MG TABLET (FP) PO SCH (21:29)
[2022-03-14] MEDS: MELATONIN 5 MG TABLETS PO SCH (21:29)
[2022-03-15] MEDS: hydrOXYzine PAMOATE 25 MG CAPSULE (FP) PO PRN (06:14)
[2022-03-15] MEDS: methaDONE 80 MG, methaDONE 10 MG PO SCH (06:14)
[2022-03-15] MEDS: NICOTINE 7 MG/24 HOURS TOPICAL PATCH TD SCH (09:55)
[2022-03-15] MEDS: PRENATAL VITAMINS W/ FOLIC ACID TABLET (FP) PO SCH (09:55)
[2022-03-15] MEDS: MELATONIN 5 MG TABLETS PO SCH (21:10)
[2022-03-15] MEDS: THIAMINE HCL 100 MG TABLET (FP) PO SCH (21:10)
[2022-03-16] MEDS: methaDONE 80 MG, methaDONE 10 MG PO SCH (06:05)
[2022-03-16] MEDS: hydrOXYzine PAMOATE 25 MG CAPSULE (FP) PO PRN ×3 (06:05→21:17)
[2022-03-16] MEDS: NICOTINE 7 MG/24 HOURS TOPICAL PATCH TD SCH (11:20)
[2022-03-16] MEDS: PRENATAL VITAMINS W/ FOLIC ACID TABLET (FP) PO SCH (11:25)
[2022-03-16] MEDS: THIAMINE HCL 100 MG TABLET (FP) PO SCH (21:17)
[2022-03-16] MEDS: MELATONIN 5 MG TABLETS PO SCH (21:17)
[2022-03-17] MEDS: methaDONE 80 MG, methaDONE 10 MG PO SCH (06:16)
[2022-03-17] MEDS: hydrOXYzine PAMOATE 25 MG CAPSULE (FP) PO PRN ×2 (06:16→21:13)
[2022-03-17] MEDS: PRENATAL VITAMINS W/ FOLIC ACID TABLET (FP) PO SCH (09:42)
[2022-03-17] MEDS: NICOTINE 7 MG/24 HOURS TOPICAL PATCH TD SCH (09:42)
[2022-03-17] MEDS: THIAMINE HCL 100 MG TABLET (FP) PO SCH (21:13)
[2022-03-17] MEDS: MELATONIN 5 MG TABLETS PO SCH (21:13)
[2022-03-18] MEDS: methaDONE 80 MG, methaDONE 10 MG PO SCH (06:14)
[2022-03-18] MEDS: hydrOXYzine PAMOATE 25 MG CAPSULE (FP) PO PRN ×2 (06:14→21:13)
[2022-03-18] MEDS: PRENATAL VITAMINS W/ FOLIC ACID TABLET (FP) PO SCH (09:53)
[2022-03-18] MEDS: NICOTINE 7 MG/24 HOURS TOPICAL PATCH TD SCH (09:54)
[2022-03-18] MEDS: THIAMINE HCL 100 MG TABLET (FP) PO SCH (21:13)
[2022-03-18] MEDS: MELATONIN 5 MG TABLETS PO SCH (21:13)
[2022-03-19] MEDS: hydrOXYzine PAMOATE 25 MG CAPSULE (FP) PO PRN ×2 (06:15→21:10)
[2022-03-19] MEDS: methaDONE 80 MG, methaDONE 10 MG PO SCH (06:15)
[2022-03-19] MEDS: PRENATAL VITAMINS W/ FOLIC ACID TABLET (FP) PO SCH (09:40)
[2022-03-19] MEDS: NICOTINE 7 MG/24 HOURS TOPICAL PATCH TD SCH (09:41)
[2022-03-19] MEDS: THIAMINE HCL 100 MG TABLET (FP) PO SCH (21:09)
[2022-03-19] MEDS: MELATONIN 5 MG TABLETS PO SCH (21:09)
[2022-03-20] MEDS: methaDONE 80 MG, methaDONE 10 MG PO SCH (06:12)
[2022-03-20] MEDS: hydrOXYzine PAMOATE 25 MG CAPSULE (FP) PO PRN ×2 (06:13→21:05)
[2022-03-20] MEDS: PRENATAL VITAMINS W/ FOLIC ACID TABLET (FP) PO SCH (09:48)
[2022-03-20] MEDS: NICOTINE 7 MG/24 HOURS TOPICAL PATCH TD SCH (09:48)
[2022-03-20] MEDS: MELATONIN 5 MG TABLETS PO SCH (21:05)
[2022-03-20] MEDS: THIAMINE HCL 100 MG TABLET (FP) PO SCH (21:05)
[2022-03-21] MEDS: hydrOXYzine PAMOATE 25 MG CAPSULE (FP) PO PRN ×2 (06:05→21:19)
[2022-03-21] MEDS: methaDONE 80 MG, methaDONE 10 MG PO SCH (06:06)
[2022-03-21] MEDS: PRENATAL VITAMINS W/ FOLIC ACID TABLET (FP) PO SCH (10:02)
[2022-03-21] MEDS: NICOTINE 7 MG/24 HOURS TOPICAL PATCH TD SCH (10:02)
[2022-03-21] MEDS: THIAMINE HCL 100 MG TABLET (FP) PO SCH (21:19)
[2022-03-21] MEDS: MELATONIN 5 MG TABLETS PO SCH (21:19)
[2022-03-22] MEDS: methaDONE 80 MG, methaDONE 10 MG PO SCH (06:13)
[2022-03-22] MEDS: hydrOXYzine PAMOATE 25 MG CAPSULE (FP) PO PRN ×2 (06:14→21:23)
[2022-03-22] MEDS: PRENATAL VITAMINS W/ FOLIC ACID TABLET (FP) PO SCH (09:55)
[2022-03-22] MEDS: NICOTINE 7 MG/24 HOURS TOPICAL PATCH TD SCH (09:56)
[2022-03-22] MEDS: MELATONIN 5 MG TABLETS PO SCH (21:23)
[2022-03-22] MEDS: THIAMINE HCL 100 MG TABLET (FP) PO SCH (21:23)
[2022-03-23] MEDS: methaDONE 80 MG, methaDONE 10 MG PO SCH (06:24)
[2022-03-23] MEDS: hydrOXYzine PAMOATE 25 MG CAPSULE (FP) PO PRN ×2 (06:25→21:35)
[2022-03-23] MEDS: NICOTINE 7 MG/24 HOURS TOPICAL PATCH TD SCH (09:42)
[2022-03-23] MEDS: PRENATAL VITAMINS W/ FOLIC ACID TABLET (FP) PO SCH (09:42)
[2022-03-23] MEDS: THIAMINE HCL 100 MG TABLET (FP) PO SCH (21:34)
[2022-03-23] MEDS: MELATONIN 5 MG TABLETS PO SCH (21:35)
[2022-03-24] MEDS: methaDONE 80 MG, methaDONE 10 MG PO SCH (06:21)
[2022-03-24] MEDS: hydrOXYzine PAMOATE 25 MG CAPSULE (FP) PO PRN ×2 (06:21→21:14)
[2022-03-24] MEDS: PRENATAL VITAMINS W/ FOLIC ACID TABLET (FP) PO SCH (10:04)
[2022-03-24] MEDS: NICOTINE 7 MG/24 HOURS TOPICAL PATCH TD SCH (10:04)
[2022-03-24] MEDS: THIAMINE HCL 100 MG TABLET (FP) PO SCH (21:14)
[2022-03-24] MEDS: MELATONIN 5 MG TABLETS PO SCH (21:14)
[2022-03-25] MEDS: methaDONE 80 MG, methaDONE 10 MG PO SCH (06:35)
[2022-03-25] MEDS: hydrOXYzine PAMOATE 25 MG CAPSULE (FP) PO PRN (06:35)
[2022-03-25 07:11] VITALS: BP 116/76; PULSE 69; RESP 16; TEMP 97
== END 2022-03-25 09:10 | disposition home or self-care (01) | DRG 772 ==
LOC: YASAS 12:05 → Y3E 12:07
PROVIDERS: ADMIT Allergy & Immunology; ATTEND Psychiatry & Neurology Pain Medicine
PROC: HZ42ZZZ Group Counseling for Substance Abuse Treatment, Cognitive-Behavioral (ICD-10-PCS; principal; 2022-03-11)
DX: F10.20 Alcohol dependence, uncomplicated (principal); F11.20 Opioid dependence, uncomplicated; F17.210 Nicotine dependence, cigarettes, uncomplicated; I10 Essential (primary) hypertension; Z86.19 Personal history of other infectious and parasitic diseases

== ENCOUNTER 2022-05-15 10:49 | Inpatient (IN) | payer OTHER ==
[2022-05-15 11:52] VITALS: BMI 19.7
[2022-05-15] MEDS ORDERED: BENZOCAINE/MENTHOL (CHLORASEPTIC ) LOZENGE MM PRN (12:15)
[2022-05-15] MEDS ORDERED: MAG HYDROX/AL HYDROX/SIMETH 30 ML UNIT-DOSE CUP PO PRN (12:15)
[2022-05-15] MEDS ORDERED: P-EPHED 60MG/TRIPROLIDI 2.5MG TABLET PO PRN (12:15)
[2022-05-15] MEDS ORDERED: NALOXONE HCL (KLOXXADO) 8 MG SPRAY NS PRN (12:15)
[2022-05-15] MEDS ORDERED: IBUPROFEN 400 MG TABLET (FP) PO PRN (12:15)
[2022-05-15] MEDS ORDERED: ONDANSETRON *ODT* 4 MG TABLET SL PRN (12:15)
[2022-05-15] MEDS ORDERED: MAGNESIUM HYDROX 2400MG/30ML ORAL SUSPENSION 30 ML CUP PO PRN (12:15)
[2022-05-15] MEDS ORDERED: guaiFENesin 200 MG/10 ML 10 ML UNIT-DOSE CUPS PO PRN (12:15)
[2022-05-15] MEDS ORDERED: NALOXONE HCL 0.4 MG/ML VIAL IM PRN (12:15)
[2022-05-15] MEDS ORDERED: LOPERAMIDE HCL 2 MG CAPSULE PO PRN (12:15)
[2022-05-15] MEDS ORDERED: BISMUTH SUBSALICYLATE 262 MG/15 ML BTL PO PRN (12:15)
[2022-05-15] MEDS ORDERED: MAGNESIUM CITRATE 300 ML BOTTLE PO PRN (12:15)
[2022-05-15] MEDS ORDERED: IBUPROFEN 600 MG TABLET (FP) PO PRN (12:15)
[2022-05-15] MEDS ORDERED: DICYCLOMINE HCL 10 MG CAPSULE PO PRN (12:15)
[2022-05-15] MEDS ORDERED: ACETAMINOPHEN 325 MG TABLET (FP) PO PRN ×2 (12:15)
[2022-05-15 16:53] LABS: HEMATOCRIT 39.3 % (35.4-49); MCH 31.7 pg (25.7-33.7); MCHC 33.1 g/dl (32.0-35.9); MEAN CELL VOLUME 95.8 fl (80-96); MEAN PLT VOLUME 10.1 fl (7.5-11.1); PLATELET COUNT 216 10^3/uL (134-434); RBC 4.11 M/mm3 (4.00-5.60); RDW 13.4 % (11.9-15.9); WHITE BLOOD COUNT 6.9 K/mm3 (4.0-10.0)
[2022-05-15 17:06] LABS: CALCIUM 8.8 mg/dL (8.5-10.1)
[2022-05-15 17:07] LABS: ALBUMIN 3.3 g/dl (3.4-5.0); BLOOD UREA NITROGEN 21.3 mg/dL (7-18)
[2022-05-15 17:11] LABS: BILIRUBIN,TOTAL 0.4 mg/dL (0.2-1); TOT PROT 6.6 g/dl (6.4-8.2)
[2022-05-15 17:16] LABS: CREATININE 1.2 mg/dL (0.55-1.3)
[2022-05-15] MEDS: hydrOXYzine PAMOATE 25 MG CAPSULE (FP) PO PRN ×2 (17:35→22:10)
[2022-05-15] MEDS: diazePAM 5 MG TABLET PO PRN ×2 (17:36→22:09)
[2022-05-15] MEDS: THIAMINE HCL 100 MG TABLET (FP) PO SCH (22:09)
[2022-05-15] MEDS: MELATONIN 5 MG TABLETS PO PRN (22:10)
[2022-05-16] MEDS: diazePAM 5 MG TABLET PO PRN (05:56)
[2022-05-16] MEDS: methaDONE 80 MG, methaDONE 20 MG PO SCH (05:56)
[2022-05-16] MEDS: hydrOXYzine PAMOATE 25 MG CAPSULE (FP) PO PRN ×4 (05:57→22:11)
[2022-05-16] MEDS ORDERED: methaDONE HCL 40 MG DISPERSABLE TABLET PO SCH (06:00)
[2022-05-16] MEDS: PRENATAL VITAMINS W/ FOLIC ACID TABLET (FP) PO SCH (10:21)
[2022-05-16] MEDS: diazePAM 5 MG TABLET PO SCH ×3 (10:22→22:11)
[2022-05-16] MEDS: METHOCARBAMOL 500 MG TABLET PO PRN ×3 (10:23→22:11)
[2022-05-16] MEDS: MELATONIN 5 MG TABLETS PO PRN (22:11)
[2022-05-16] MEDS: THIAMINE HCL 100 MG TABLET (FP) PO SCH (22:11)
[2022-05-17] MEDS: diazePAM 5 MG TABLET PO SCH ×4 (05:23→22:10)
[2022-05-17] MEDS: methaDONE 80 MG, methaDONE 20 MG PO SCH (05:23)
[2022-05-17] MEDS: hydrOXYzine PAMOATE 25 MG CAPSULE (FP) PO PRN ×4 (05:24→22:11)
[2022-05-17] MEDS: diazePAM 5 MG TABLET PO PRN (08:27)
[2022-05-17] MEDS: PRENATAL VITAMINS W/ FOLIC ACID TABLET (FP) PO SCH (10:15)
[2022-05-17] MEDS: METHOCARBAMOL 500 MG TABLET PO PRN (10:15)
[2022-05-17 13:12] LABS: SGOT/AST 28 U/L (15-37)
[2022-05-17 13:19] LABS: ALK PHOS 361 U/L (45-117)
[2022-05-17] MEDS: THIAMINE HCL 100 MG TABLET (FP) PO SCH (22:11)
[2022-05-17] MEDS: MELATONIN 5 MG TABLETS PO PRN (22:12)
[2022-05-18] MEDS: methaDONE 80 MG, methaDONE 20 MG PO SCH (05:59)
[2022-05-18] MEDS ORDERED: diazePAM 5 MG TABLET PO SCH (06:00)
[2022-05-18] MEDS: hydrOXYzine PAMOATE 25 MG CAPSULE (FP) PO PRN ×4 (06:01→22:04)
[2022-05-18] MEDS: PRENATAL VITAMINS W/ FOLIC ACID TABLET (FP) PO SCH (10:23)
[2022-05-18] MEDS: METHOCARBAMOL 500 MG TABLET PO PRN (10:23)
[2022-05-18] MEDS: diazePAM 5 MG TABLET PO PRN (10:24)
[2022-05-18] MEDS: chlordiazePOXIDE HCL 10 MG CAPSULE PO SCH ×2 (13:29→22:01)
[2022-05-18] MEDS: THIAMINE HCL 100 MG TABLET (FP) PO SCH (22:01)
[2022-05-18] MEDS: MELATONIN 5 MG TABLETS PO PRN (22:02)
[2022-05-19] MEDS: chlordiazePOXIDE HCL 10 MG CAPSULE PO SCH ×2 (05:25→18:32)
[2022-05-19] MEDS: methaDONE 80 MG, methaDONE 20 MG PO SCH (05:26)
[2022-05-19] MEDS ORDERED: diazePAM 5 MG TABLET PO SCH (06:00)
[2022-05-19] MEDS: METHOCARBAMOL 500 MG TABLET PO PRN (10:00)
[2022-05-19] MEDS: hydrOXYzine PAMOATE 25 MG CAPSULE (FP) PO PRN ×2 (10:00→22:28)
[2022-05-19] MEDS: PRENATAL VITAMINS W/ FOLIC ACID TABLET (FP) PO SCH (10:00)
[2022-05-19] MEDS ORDERED: chlordiazePOXIDE HCL 10 MG CAPSULE PO ONE (12:26)
[2022-05-19 21:02] VITALS: RESP 18
[2022-05-19] MEDS: THIAMINE HCL 100 MG TABLET (FP) PO SCH (22:27)
[2022-05-19] MEDS: MELATONIN 5 MG TABLETS PO PRN (22:28)
[2022-05-20] MEDS: methaDONE 80 MG, methaDONE 20 MG PO SCH (05:30)
[2022-05-20] MEDS: hydrOXYzine PAMOATE 25 MG CAPSULE (FP) PO PRN ×2 (05:30→10:30)
[2022-05-20] MEDS ORDERED: diazePAM 5 MG TABLET PO ONE (06:00)
[2022-05-20] MEDS ORDERED: chlordiazePOXIDE HCL 10 MG CAPSULE PO ONE (06:00)
[2022-05-20] MEDS: METHOCARBAMOL 500 MG TABLET PO PRN (10:30)
[2022-05-20] MEDS: PRENATAL VITAMINS W/ FOLIC ACID TABLET (FP) PO SCH (10:30)
[2022-05-20 10:59] VITALS: BP 102/56; PULSE 51; TEMP 98.1
== END 2022-05-20 12:20 | disposition other institution (70) | DRG 773 ==
LOC: YASAS 10:49 → UNDOADMIN 12:46 → Y6N 12:46
PROVIDERS: ADMIT Allergy & Immunology; ATTEND Surgery
PROC: HZ2ZZZZ Detoxification Services for Substance Abuse Treatment (ICD-10-PCS; principal; 2022-05-15)
DX: F13.230 Sedative, hypnotic or anxiolytic dependence with withdrawal, uncomplicated (principal); F11.20 Opioid dependence, uncomplicated; F10.20 Alcohol dependence, uncomplicated; F15.20 Other stimulant dependence, uncomplicated; F14.20 Cocaine dependence, uncomplicated; F17.210 Nicotine dependence, cigarettes, uncomplicated; F41.9 Anxiety disorder, unspecified; I10 Essential (primary) hypertension; R63.4 Abnormal weight loss; Z68.1 Body mass index [BMI] 19.9 or less, adult
CPT/HCPCS: 36415; 80053; 84075; 84450; 84460; 85027; 86780; C9803-CS; U0003; U0005

== ENCOUNTER 2022-05-20 12:27 | Inpatient (IN) | payer OTHER ==
[2022-05-20] MEDS ORDERED: MAGNESIUM CITRATE 300 ML BOTTLE PO PRN (14:45)
[2022-05-20] MEDS ORDERED: guaiFENesin 200 MG/10 ML 10 ML UNIT-DOSE CUPS PO PRN (14:45)
[2022-05-20] MEDS ORDERED: MAG HYDROX/AL HYDROX/SIMETH 30 ML UNIT-DOSE CUP PO PRN (14:45)
[2022-05-20] MEDS ORDERED: NICOTINE 10 MG CARTRIDGE (INHALER) IH PRN (14:45)
[2022-05-20] MEDS ORDERED: MAGNESIUM HYDROX 2400MG/30ML ORAL SUSPENSION 30 ML CUP PO PRN (14:45)
[2022-05-20] MEDS ORDERED: LOPERAMIDE HCL 2 MG CAPSULE PO PRN (14:45)
[2022-05-20] MEDS ORDERED: IBUPROFEN 400 MG TABLET (FP) PO PRN (14:45)
[2022-05-20] MEDS ORDERED: P-EPHED 60MG/TRIPROLIDI 2.5MG TABLET PO PRN (14:45)
[2022-05-20] MEDS ORDERED: NICOTINE POLACRILEX 2 MG GUM BC PRN (14:45)
[2022-05-20] MEDS: MELATONIN 5 MG TABLETS PO SCH (21:19)
[2022-05-20] MEDS: THIAMINE HCL 100 MG TABLET (FP) PO SCH (21:19)
[2022-05-21] MEDS ORDERED: methaDONE HCL 40 MG DISPERSABLE TABLET PO SCH (06:00)
[2022-05-21] MEDS: methaDONE 80 MG, methaDONE 20 MG PO SCH (06:22)
[2022-05-21] MEDS: hydrOXYzine PAMOATE 25 MG CAPSULE (FP) PO PRN ×3 (06:22→21:20)
[2022-05-21] MEDS: PRENATAL VITAMINS W/ FOLIC ACID TABLET (FP) PO SCH (09:57)
[2022-05-21] MEDS: ACETAMINOPHEN 325 MG TABLET (FP) PO PRN (13:02)
[2022-05-21] MEDS: THIAMINE HCL 100 MG TABLET (FP) PO SCH (21:20)
[2022-05-21] MEDS: MELATONIN 5 MG TABLETS PO SCH (21:20)
[2022-05-22] MEDS: methaDONE 80 MG, methaDONE 20 MG PO SCH (06:14)
[2022-05-22] MEDS: hydrOXYzine PAMOATE 25 MG CAPSULE (FP) PO PRN (06:16)
[2022-05-22] MEDS: PRENATAL VITAMINS W/ FOLIC ACID TABLET (FP) PO SCH (09:50)
[2022-05-22] MEDS: MELATONIN 5 MG TABLETS PO SCH (21:24)
[2022-05-22] MEDS: THIAMINE HCL 100 MG TABLET (FP) PO SCH (21:24)
[2022-05-22] MEDS: SUVOREXANT 10 MG TABLET PO PRN (21:25)
[2022-05-22] MEDS: hydrOXYzine PAMOATE 50 MG CAPSULE (FP) PO PRN (21:25)
[2022-05-23] MEDS: methaDONE 80 MG, methaDONE 20 MG PO SCH (06:32)
[2022-05-23] MEDS: hydrOXYzine PAMOATE 50 MG CAPSULE (FP) PO PRN ×2 (06:33→21:34)
[2022-05-23] MEDS: PRENATAL VITAMINS W/ FOLIC ACID TABLET (FP) PO SCH (09:49)
[2022-05-23] MEDS: MELATONIN 5 MG TABLETS PO SCH (21:33)
[2022-05-23] MEDS: THIAMINE HCL 100 MG TABLET (FP) PO SCH (21:34)
[2022-05-23] MEDS: SUVOREXANT 10 MG TABLET PO PRN (21:34)
[2022-05-24] MEDS: methaDONE 80 MG, methaDONE 20 MG PO SCH (06:15)
[2022-05-24] MEDS: hydrOXYzine PAMOATE 50 MG CAPSULE (FP) PO PRN ×2 (06:17→21:26)
[2022-05-24] MEDS: PRENATAL VITAMINS W/ FOLIC ACID TABLET (FP) PO SCH (09:34)
[2022-05-24] MEDS: THIAMINE HCL 100 MG TABLET (FP) PO SCH (21:26)
[2022-05-24] MEDS: SUVOREXANT 10 MG TABLET PO PRN (21:26)
[2022-05-24] MEDS: MELATONIN 5 MG TABLETS PO SCH (21:26)
[2022-05-25] MEDS: methaDONE 80 MG, methaDONE 20 MG PO SCH (05:58)
[2022-05-25] MEDS: hydrOXYzine PAMOATE 50 MG CAPSULE (FP) PO PRN (05:59)
[2022-05-25] MEDS: PRENATAL VITAMINS W/ FOLIC ACID TABLET (FP) PO SCH (09:41)
[2022-05-25] MEDS: MELATONIN 5 MG TABLETS PO SCH (21:19)
[2022-05-25] MEDS: SUVOREXANT 10 MG TABLET PO PRN (21:20)
[2022-05-25] MEDS: THIAMINE HCL 100 MG TABLET (FP) PO SCH (21:20)
[2022-05-26] MEDS: methaDONE 80 MG, methaDONE 20 MG PO SCH (06:25)
[2022-05-26] MEDS: hydrOXYzine PAMOATE 50 MG CAPSULE (FP) PO PRN ×2 (06:27→21:16)
[2022-05-26] MEDS: PRENATAL VITAMINS W/ FOLIC ACID TABLET (FP) PO SCH (09:39)
[2022-05-26] MEDS: THIAMINE HCL 100 MG TABLET (FP) PO SCH (21:16)
[2022-05-26] MEDS: MELATONIN 5 MG TABLETS PO SCH (21:16)
[2022-05-26] MEDS: SUVOREXANT 10 MG TABLET PO PRN (21:17)
[2022-05-27] MEDS: methaDONE 80 MG, methaDONE 20 MG PO SCH (06:23)
[2022-05-27] MEDS: hydrOXYzine PAMOATE 50 MG CAPSULE (FP) PO PRN ×2 (06:25→22:26)
[2022-05-27] MEDS: PRENATAL VITAMINS W/ FOLIC ACID TABLET (FP) PO PRN (09:50)
[2022-05-27] MEDS: THIAMINE HCL 100 MG TABLET (FP) PO SCH (21:26)
[2022-05-27] MEDS: SUVOREXANT 10 MG TABLET PO PRN (21:26)
[2022-05-27] MEDS: MELATONIN 5 MG TABLETS PO SCH (21:26)
[2022-05-28] MEDS: hydrOXYzine PAMOATE 50 MG CAPSULE (FP) PO PRN ×2 (06:36→21:15)
[2022-05-28] MEDS: methaDONE 80 MG, methaDONE 20 MG PO SCH (06:37)
[2022-05-28] MEDS: PRENATAL VITAMINS W/ FOLIC ACID TABLET (FP) PO PRN (09:54)
[2022-05-28] MEDS: MELATONIN 5 MG TABLETS PO SCH (21:14)
[2022-05-28] MEDS: THIAMINE HCL 100 MG TABLET (FP) PO SCH (21:14)
[2022-05-29] MEDS: methaDONE 80 MG, methaDONE 20 MG PO SCH (06:21)
[2022-05-29] MEDS: hydrOXYzine PAMOATE 50 MG CAPSULE (FP) PO PRN ×2 (06:21→21:19)
[2022-05-29] MEDS: PRENATAL VITAMINS W/ FOLIC ACID TABLET (FP) PO PRN (10:14)
[2022-05-29] MEDS: MELATONIN 5 MG TABLETS PO SCH (21:18)
[2022-05-29] MEDS: SUVOREXANT 10 MG TABLET PO PRN (21:18)
[2022-05-29] MEDS: THIAMINE HCL 100 MG TABLET (FP) PO SCH (21:18)
[2022-05-30] MEDS: hydrOXYzine PAMOATE 50 MG CAPSULE (FP) PO PRN ×2 (06:36→21:10)
[2022-05-30] MEDS: methaDONE 80 MG, methaDONE 20 MG PO SCH (06:36)
[2022-05-30] MEDS: PRENATAL VITAMINS W/ FOLIC ACID TABLET (FP) PO PRN (09:42)
[2022-05-30] MEDS: ACETAMINOPHEN 325 MG TABLET (FP) PO PRN (19:44)
[2022-05-30] MEDS: THIAMINE HCL 100 MG TABLET (FP) PO SCH (21:10)
[2022-05-30] MEDS: MELATONIN 5 MG TABLETS PO SCH (21:10)
[2022-05-30] MEDS: SUVOREXANT 10 MG TABLET PO PRN (21:11)
[2022-05-31] MEDS: methaDONE 80 MG, methaDONE 20 MG PO SCH (06:35)
[2022-05-31] MEDS: hydrOXYzine PAMOATE 50 MG CAPSULE (FP) PO PRN ×2 (06:37→21:27)
[2022-05-31] MEDS: PRENATAL VITAMINS W/ FOLIC ACID TABLET (FP) PO PRN (09:51)
[2022-05-31] MEDS: MELATONIN 5 MG TABLETS PO SCH (21:27)
[2022-05-31] MEDS: THIAMINE HCL 100 MG TABLET (FP) PO SCH (21:27)
[2022-05-31] MEDS: SUVOREXANT 10 MG TABLET PO PRN (21:28)
[2022-06-01] MEDS: hydrOXYzine PAMOATE 50 MG CAPSULE (FP) PO PRN ×2 (06:30→21:17)
[2022-06-01] MEDS: methaDONE 80 MG, methaDONE 20 MG PO SCH (06:30)
[2022-06-01] MEDS: MELATONIN 5 MG TABLETS PO SCH (21:17)
[2022-06-01] MEDS: THIAMINE HCL 100 MG TABLET (FP) PO SCH (21:17)
[2022-06-01] MEDS: SUVOREXANT 10 MG TABLET PO PRN (21:17)
[2022-06-02] MEDS: hydrOXYzine PAMOATE 50 MG CAPSULE (FP) PO PRN ×2 (06:16→21:09)
[2022-06-02] MEDS: methaDONE 80 MG, methaDONE 20 MG PO SCH (06:16)
[2022-06-02] MEDS: PRENATAL VITAMINS W/ FOLIC ACID TABLET (FP) PO PRN (09:11)
[2022-06-02] MEDS: SUVOREXANT 10 MG TABLET PO PRN (21:09)
[2022-06-02] MEDS: MELATONIN 5 MG TABLETS PO SCH (21:09)
[2022-06-02] MEDS: THIAMINE HCL 100 MG TABLET (FP) PO SCH (21:10)
[2022-06-03] MEDS: methaDONE 80 MG, methaDONE 20 MG PO SCH (06:20)
[2022-06-03] MEDS: hydrOXYzine PAMOATE 50 MG CAPSULE (FP) PO PRN ×2 (06:20→21:18)
[2022-06-03] MEDS: THIAMINE HCL 100 MG TABLET (FP) PO SCH (21:17)
[2022-06-03] MEDS: MELATONIN 5 MG TABLETS PO SCH (21:17)
[2022-06-03] MEDS ORDERED: SUVOREXANT 10 MG TABLET PO PRN (22:00)
[2022-06-04] MEDS: hydrOXYzine PAMOATE 50 MG CAPSULE (FP) PO PRN ×2 (06:28→21:20)
[2022-06-04] MEDS: methaDONE 80 MG, methaDONE 20 MG PO SCH (06:29)
[2022-06-04] MEDS: THIAMINE HCL 100 MG TABLET (FP) PO SCH (21:20)
[2022-06-04] MEDS: MELATONIN 5 MG TABLETS PO SCH (21:20)
[2022-06-05] MEDS: methaDONE 80 MG, methaDONE 20 MG PO SCH (06:19)
[2022-06-05] MEDS: hydrOXYzine PAMOATE 50 MG CAPSULE (FP) PO PRN ×2 (06:19→21:14)
[2022-06-05] MEDS: PRENATAL VITAMINS W/ FOLIC ACID TABLET (FP) PO PRN (09:56)
[2022-06-05] MEDS: THIAMINE HCL 100 MG TABLET (FP) PO SCH (21:13)
[2022-06-05] MEDS: MELATONIN 5 MG TABLETS PO SCH (21:13)
[2022-06-05] MEDS: SUVOREXANT 10 MG TABLET PO PRN (21:14)
[2022-06-06] MEDS: methaDONE 80 MG, methaDONE 20 MG PO SCH (06:20)
[2022-06-06] MEDS: hydrOXYzine PAMOATE 50 MG CAPSULE (FP) PO PRN ×2 (06:20→21:12)
[2022-06-06] MEDS: THIAMINE HCL 100 MG TABLET (FP) PO SCH (21:11)
[2022-06-06] MEDS: MELATONIN 5 MG TABLETS PO SCH (21:12)
[2022-06-07] MEDS: hydrOXYzine PAMOATE 50 MG CAPSULE (FP) PO PRN ×2 (06:16→21:02)
[2022-06-07] MEDS: methaDONE 80 MG, methaDONE 20 MG PO SCH (06:16)
[2022-06-07] MEDS: SUVOREXANT 10 MG TABLET PO PRN (21:01)
[2022-06-07] MEDS: THIAMINE HCL 100 MG TABLET (FP) PO SCH (21:01)
[2022-06-07] MEDS: MELATONIN 5 MG TABLETS PO SCH (21:01)
[2022-06-08] MEDS: hydrOXYzine PAMOATE 50 MG CAPSULE (FP) PO PRN ×2 (06:09→21:11)
[2022-06-08] MEDS: methaDONE 80 MG, methaDONE 20 MG PO SCH (06:09)
[2022-06-08] MEDS: SUVOREXANT 10 MG TABLET PO PRN (21:11)
[2022-06-08] MEDS: MELATONIN 5 MG TABLETS PO SCH (21:11)
[2022-06-08] MEDS: THIAMINE HCL 100 MG TABLET (FP) PO SCH (21:11)
[2022-06-09] MEDS: methaDONE 80 MG, methaDONE 20 MG PO SCH (06:26)
[2022-06-09] MEDS: hydrOXYzine PAMOATE 50 MG CAPSULE (FP) PO PRN ×2 (06:28→21:15)
[2022-06-09] MEDS: MELATONIN 5 MG TABLETS PO SCH (21:15)
[2022-06-09] MEDS: THIAMINE HCL 100 MG TABLET (FP) PO SCH (21:15)
[2022-06-09] MEDS: SUVOREXANT 10 MG TABLET PO PRN (21:16)
[2022-06-10] MEDS ORDERED: methaDONE 80 MG, methaDONE 20 MG PO SCH (06:00)
[2022-06-10] MEDS: hydrOXYzine PAMOATE 50 MG CAPSULE (FP) PO PRN (06:20)
[2022-06-10 06:41] VITALS: BP 110/74; PULSE 73; RESP 20; TEMP 98.6
== END 2022-06-10 09:00 | disposition home or self-care (01) | DRG 772 ==
LOC: YASAS 12:27 → Y3E 12:30
PROVIDERS: ADMIT Allergy & Immunology; ATTEND Psychiatry & Neurology Pain Medicine
PROC: HZ42ZZZ Group Counseling for Substance Abuse Treatment, Cognitive-Behavioral (ICD-10-PCS; principal; 2022-05-20)
DX: F13.20 Sedative, hypnotic or anxiolytic dependence, uncomplicated (principal); F11.20 Opioid dependence, uncomplicated; F15.20 Other stimulant dependence, uncomplicated; F10.10 Alcohol abuse, uncomplicated; F14.10 Cocaine abuse, uncomplicated; F19.282 Other psychoactive substance dependence with psychoactive substance-induced sleep disorder; F41.9 Anxiety disorder, unspecified; F17.210 Nicotine dependence, cigarettes, uncomplicated; I10 Essential (primary) hypertension; Z86.11 Personal history of tuberculosis

== ENCOUNTER 2022-08-20 13:04 | Inpatient (IN) | payer OTHER ==
[2022-08-20 13:51] VITALS: BMI 21.1
[2022-08-20] MEDS ORDERED: LOPERAMIDE HCL 2 MG CAPSULE PO PRN (15:15)
[2022-08-20] MEDS ORDERED: POLYETHYLENE GLYCOL (HEALTHYLAX) 3350 17 GM PACKET PO PRN (15:15)
[2022-08-20] MEDS ORDERED: guaiFENesin 200 MG/10 ML 10 ML UNIT-DOSE CUPS PO PRN (15:15)
[2022-08-20] MEDS ORDERED: IBUPROFEN 400 MG TABLET (FP) PO PRN (15:15)
[2022-08-20] MEDS ORDERED: MAG HYDROX/AL HYDROX/SIMETH 30 ML UNIT-DOSE CUP PO PRN (15:15)
[2022-08-20] MEDS ORDERED: P-EPHED 60MG/TRIPROLIDI 2.5MG TABLET PO PRN (15:15)
[2022-08-20] MEDS ORDERED: BENZOCAINE/MENTHOL (CHLORASEPTIC ) LOZENGE MM PRN (15:15)
[2022-08-20] MEDS ORDERED: ACETAMINOPHEN 325 MG TABLET (FP) PO PRN (15:15)
[2022-08-20] MEDS ORDERED: MAGNESIUM HYDROX 2400MG/30ML ORAL SUSPENSION 30 ML CUP PO PRN (15:15)
[2022-08-20] MEDS ORDERED: hydrOXYzine PAMOATE 25 MG CAPSULE (FP) PO ONE (15:32)
[2022-08-20] MEDS: hydrOXYzine PAMOATE 25 MG CAPSULE (FP) PO PRN (15:35)
[2022-08-20] MEDS: THIAMINE HCL 100 MG TABLET (FP) PO SCH (21:40)
[2022-08-20] MEDS ORDERED: MELATONIN 5 MG TABLETS PO SCH (22:00)
[2022-08-21] MEDS: hydrOXYzine PAMOATE 25 MG CAPSULE (FP) PO PRN (05:59)
[2022-08-21] MEDS ORDERED: methaDONE HCL 10 MG TABLET PO SCH (07:50)
[2022-08-21] MEDS: methaDONE 80 MG, methaDONE 20 MG PO SCH (08:55)
[2022-08-21] MEDS: PRENATAL VITAMINS W/ FOLIC ACID TABLET (FP) PO SCH (09:40)
[2022-08-21] MEDS: NICOTINE 10 MG CARTRIDGE (INHALER) IH PRN (09:41)
[2022-08-21] MEDS: NICOTINE 7 MG/24 HOURS TOPICAL PATCH TD SCH (09:50)
[2022-08-21] MEDS ORDERED: hydrOXYzine PAMOATE 25 MG CAPSULE (FP) PO PRN (10:13)
[2022-08-21] MEDS ORDERED: hydrOXYzine PAMOATE 25 MG CAPSULE (FP) PO ONE (11:15)
[2022-08-21 12:11] LABS: HEMOGLOBIN 14.5 GM/dL (11.7-16.9); MCH 31.4 pg (25.7-33.7); MCHC 32.8 g/dl (32.0-35.9); MEAN CELL VOLUME 95.7 fl (80-96); MEAN PLT VOLUME 10.4 fl (7.5-11.1); PLATELET COUNT 216 10^3/uL (134-434); RDW 14.4 % (11.9-15.9); WHITE BLOOD COUNT 5.2 K/mm3 (4.0-10.0)
[2022-08-21 12:14] LABS: PH,URINE 5.5 (5.0-8.0); URINE APPEARANCE CLOUDY; URINE BILIRUBIN NEGATIVE (NEGATIVE); URINE COLOR DK YELLOW; URINE GLUCOSE (UA) NEGATIVE (NEGATIVE); URINE KETONE TRACE (NEGATIVE); URINE LEUK ESTERASE NEGATIVE (NEGATIVE); URINE NITRITE NEGATIVE (NEGATIVE); URINE PROTEIN TRACE (NEGATIVE)
[2022-08-21 12:24] LABS: ALBUMIN 3.6 g/dl (3.4-5.0); CALCIUM 8.9 mg/dL (8.5-10.1)
[2022-08-21 12:27] LABS: CREATININE 1.4 mg/dL (0.55-1.3)
[2022-08-21 12:28] LABS: BILIRUBIN,TOTAL 0.2 mg/dL (0.2-1)
[2022-08-21 12:29] LABS: TOT PROT 7.4 g/dl (6.4-8.2)
[2022-08-21] MEDS: GABAPENTIN 100 MG CAPSULE PO SCH (21:21)
[2022-08-21] MEDS: SUVOREXANT 5 MG TABLET PO PRN (21:21)
[2022-08-21] MEDS: THIAMINE HCL 100 MG TABLET (FP) PO SCH (21:21)
[2022-08-22] MEDS: GABAPENTIN 100 MG CAPSULE PO SCH ×3 (05:48→21:01)
[2022-08-22] MEDS: methaDONE 80 MG, methaDONE 20 MG PO SCH (05:48)
[2022-08-22] MEDS: PRENATAL VITAMINS W/ FOLIC ACID TABLET (FP) PO SCH (09:33)
[2022-08-22] MEDS: NICOTINE 7 MG/24 HOURS TOPICAL PATCH TD SCH (09:33)
[2022-08-22] MEDS: THIAMINE HCL 100 MG TABLET (FP) PO SCH (21:00)
[2022-08-22] MEDS: SUVOREXANT 5 MG TABLET PO PRN (21:01)
[2022-08-23] MEDS: GABAPENTIN 100 MG CAPSULE PO SCH ×3 (06:05→21:14)
[2022-08-23] MEDS: methaDONE 80 MG, methaDONE 20 MG PO SCH (06:05)
[2022-08-23] MEDS: PRENATAL VITAMINS W/ FOLIC ACID TABLET (FP) PO SCH (09:38)
[2022-08-23] MEDS: NICOTINE 7 MG/24 HOURS TOPICAL PATCH TD SCH (09:38)
[2022-08-23] MEDS: NICOTINE 10 MG CARTRIDGE (INHALER) IH PRN (09:39)
[2022-08-23] MEDS: THIAMINE HCL 100 MG TABLET (FP) PO SCH (21:14)
[2022-08-23] MEDS: SUVOREXANT 5 MG TABLET PO PRN (21:16)
[2022-08-24] MEDS: GABAPENTIN 100 MG CAPSULE PO SCH ×3 (06:00→21:01)
[2022-08-24] MEDS: methaDONE 80 MG, methaDONE 20 MG PO SCH (06:00)
[2022-08-24] MEDS: PRENATAL VITAMINS W/ FOLIC ACID TABLET (FP) PO SCH (09:57)
[2022-08-24] MEDS: NICOTINE 7 MG/24 HOURS TOPICAL PATCH TD SCH (09:58)
[2022-08-24] MEDS: SUVOREXANT 5 MG TABLET PO PRN (21:01)
[2022-08-24] MEDS: THIAMINE HCL 100 MG TABLET (FP) PO SCH (21:01)
[2022-08-25] MEDS: GABAPENTIN 100 MG CAPSULE PO SCH ×3 (05:53→21:06)
[2022-08-25] MEDS: methaDONE 80 MG, methaDONE 20 MG PO SCH (05:53)
[2022-08-25] MEDS: PRENATAL VITAMINS W/ FOLIC ACID TABLET (FP) PO SCH (09:48)
[2022-08-25] MEDS: NICOTINE 7 MG/24 HOURS TOPICAL PATCH TD SCH (09:49)
[2022-08-25] MEDS: THIAMINE HCL 100 MG TABLET (FP) PO SCH (21:06)
[2022-08-25] MEDS: SUVOREXANT 5 MG TABLET PO PRN (21:07)
[2022-08-26] MEDS: methaDONE 80 MG, methaDONE 20 MG PO SCH (06:00)
[2022-08-26] MEDS: GABAPENTIN 100 MG CAPSULE PO SCH ×3 (06:00→21:04)
[2022-08-26] MEDS: NICOTINE 10 MG CARTRIDGE (INHALER) IH PRN (06:00)
[2022-08-26] MEDS: PRENATAL VITAMINS W/ FOLIC ACID TABLET (FP) PO SCH (09:29)
[2022-08-26] MEDS: NICOTINE 7 MG/24 HOURS TOPICAL PATCH TD SCH (09:29)
[2022-08-26] MEDS: THIAMINE HCL 100 MG TABLET (FP) PO SCH (21:04)
[2022-08-26] MEDS: SUVOREXANT 5 MG TABLET PO PRN (21:05)
[2022-08-27] MEDS: methaDONE 80 MG, methaDONE 20 MG PO SCH (06:20)
[2022-08-27] MEDS: GABAPENTIN 100 MG CAPSULE PO SCH ×3 (06:21→21:04)
[2022-08-27] MEDS: PRENATAL VITAMINS W/ FOLIC ACID TABLET (FP) PO SCH (09:40)
[2022-08-27] MEDS: NICOTINE 7 MG/24 HOURS TOPICAL PATCH TD SCH (09:41)
[2022-08-27] MEDS: THIAMINE HCL 100 MG TABLET (FP) PO SCH (21:03)
[2022-08-27] MEDS: SUVOREXANT 5 MG TABLET PO PRN (21:04)
[2022-08-28] MEDS: methaDONE 80 MG, methaDONE 20 MG PO SCH (06:06)
[2022-08-28] MEDS: GABAPENTIN 100 MG CAPSULE PO SCH ×3 (06:06→21:13)
[2022-08-28] MEDS: NICOTINE 7 MG/24 HOURS TOPICAL PATCH TD SCH (09:23)
[2022-08-28] MEDS: PRENATAL VITAMINS W/ FOLIC ACID TABLET (FP) PO SCH (09:23)
[2022-08-28 13:43] LABS: CREATININE 1.4 mg/dL (0.55-1.3)
[2022-08-28 13:44] LABS: TOT PROT 7.9 g/dl (6.4-8.2)
[2022-08-28 13:46] LABS: BLOOD UREA NITROGEN 24.7 mg/dL (7-18)
[2022-08-28 13:48] LABS: BILIRUBIN,TOTAL 0.6 mg/dL (0.2-1)
[2022-08-28] MEDS ORDERED: SODIUM POLYSTYRENE SULFONATE 15 GM/60 ML BOTTLE PO ONE ×3 (14:15→19:05)
[2022-08-28] MEDS: THIAMINE HCL 100 MG TABLET (FP) PO SCH (21:13)
[2022-08-28] MEDS: SUVOREXANT 5 MG TABLET PO PRN (21:13)
[2022-08-29] MEDS: methaDONE 80 MG, methaDONE 20 MG PO SCH (06:10)
[2022-08-29] MEDS: GABAPENTIN 100 MG CAPSULE PO SCH ×3 (06:10→21:19)
[2022-08-29] MEDS: PRENATAL VITAMINS W/ FOLIC ACID TABLET (FP) PO SCH (09:24)
[2022-08-29] MEDS: NICOTINE 7 MG/24 HOURS TOPICAL PATCH TD SCH (09:24)
[2022-08-29 11:40] LABS: ALBUMIN 3.9 g/dl (3.4-5.0); BLOOD UREA NITROGEN 20.8 mg/dL (7-18); CALCIUM 8.8 mg/dL (8.5-10.1)
[2022-08-29 11:44] LABS: CREATININE 1.2 mg/dL (0.55-1.3)
[2022-08-29 11:46] LABS: BILIRUBIN,TOTAL 1.1 mg/dL (0.2-1); TOT PROT 7.8 g/dl (6.4-8.2)
[2022-08-29] MEDS: NICOTINE 10 MG CARTRIDGE (INHALER) IH PRN (21:18)
[2022-08-29] MEDS: SUVOREXANT 5 MG TABLET PO PRN (21:19)
[2022-08-29] MEDS: THIAMINE HCL 100 MG TABLET (FP) PO SCH (21:19)
[2022-08-29] MEDS: LACTULOSE 20 GM/30 ML UDC (FOR ORAL USE ONLY) PO SCH (21:20)
[2022-08-30] MEDS: methaDONE 80 MG, methaDONE 20 MG PO SCH (06:00)
[2022-08-30] MEDS: LACTULOSE 20 GM/30 ML UDC (FOR ORAL USE ONLY) PO SCH ×3 (06:00→21:05)
[2022-08-30] MEDS: GABAPENTIN 100 MG CAPSULE PO SCH ×3 (06:00→21:06)
[2022-08-30] MEDS: PRENATAL VITAMINS W/ FOLIC ACID TABLET (FP) PO SCH (09:47)
[2022-08-30] MEDS: NICOTINE 7 MG/24 HOURS TOPICAL PATCH TD SCH (09:47)
[2022-08-30] MEDS: THIAMINE HCL 100 MG TABLET (FP) PO SCH (21:05)
[2022-08-30] MEDS: SUVOREXANT 5 MG TABLET PO PRN (21:06)
[2022-08-31] MEDS: LACTULOSE 20 GM/30 ML UDC (FOR ORAL USE ONLY) PO SCH ×3 (06:07→21:28)
[2022-08-31] MEDS: GABAPENTIN 100 MG CAPSULE PO SCH ×3 (06:08→21:27)
[2022-08-31] MEDS: methaDONE 80 MG, methaDONE 20 MG PO SCH (06:08)
[2022-08-31] MEDS: NICOTINE 10 MG CARTRIDGE (INHALER) IH PRN (09:26)
[2022-08-31] MEDS: NICOTINE 7 MG/24 HOURS TOPICAL PATCH TD SCH (09:26)
[2022-08-31] MEDS: PRENATAL VITAMINS W/ FOLIC ACID TABLET (FP) PO SCH (09:26)
[2022-08-31] MEDS: THIAMINE HCL 100 MG TABLET (FP) PO SCH (21:27)
[2022-08-31] MEDS: SUVOREXANT 5 MG TABLET PO PRN (21:28)
[2022-08-31] MEDS ORDERED: SUVOREXANT 5 MG TABLET PO PRN (22:00)
[2022-09-01] MEDS: LACTULOSE 20 GM/30 ML UDC (FOR ORAL USE ONLY) PO SCH ×4 (05:54→21:25)
[2022-09-01] MEDS: methaDONE 80 MG, methaDONE 20 MG PO SCH (05:54)
[2022-09-01] MEDS: GABAPENTIN 100 MG CAPSULE PO SCH ×3 (05:54→21:25)
[2022-09-01] MEDS: NICOTINE 7 MG/24 HOURS TOPICAL PATCH TD SCH (09:27)
[2022-09-01] MEDS: PRENATAL VITAMINS W/ FOLIC ACID TABLET (FP) PO SCH (09:27)
[2022-09-01] MEDS ORDERED: NICOTINE 7 MG/24 HOURS TOPICAL PATCH TD PRN (12:40)
[2022-09-01] MEDS: THIAMINE HCL 100 MG TABLET (FP) PO SCH (21:25)
[2022-09-02] MEDS: GABAPENTIN 100 MG CAPSULE PO SCH ×3 (05:53→21:12)
[2022-09-02] MEDS: methaDONE 80 MG, methaDONE 20 MG PO SCH (05:53)
[2022-09-02] MEDS: LACTULOSE 20 GM/30 ML UDC (FOR ORAL USE ONLY) PO SCH ×4 (09:21→21:12)
[2022-09-02] MEDS: PRENATAL VITAMINS W/ FOLIC ACID TABLET (FP) PO SCH (09:21)
[2022-09-02] MEDS: SUVOREXANT 5 MG TABLET PO PRN (21:12)
[2022-09-02] MEDS: THIAMINE HCL 100 MG TABLET (FP) PO SCH (21:12)
[2022-09-03] MEDS: methaDONE 80 MG, methaDONE 20 MG PO SCH (06:03)
[2022-09-03] MEDS: GABAPENTIN 100 MG CAPSULE PO SCH ×3 (06:03→21:20)
[2022-09-03] MEDS: LACTULOSE 20 GM/30 ML UDC (FOR ORAL USE ONLY) PO SCH ×2 (09:25→14:16)
[2022-09-03] MEDS: PRENATAL VITAMINS W/ FOLIC ACID TABLET (FP) PO SCH (09:25)
[2022-09-03 11:09] LABS: BILIRUBIN,TOTAL 0.6 mg/dL (0.2-1)
[2022-09-03 11:12] LABS: CALCIUM 9.6 mg/dL (8.5-10.1)
[2022-09-03 11:15] LABS: BLOOD UREA NITROGEN 19.5 mg/dL (7-18)
[2022-09-03 11:17] LABS: ALBUMIN 3.8 g/dl (3.4-5.0)
[2022-09-03 11:18] LABS: CREATININE 1.3 mg/dL (0.55-1.3); TOT PROT 7.8 g/dl (6.4-8.2)
[2022-09-03] MEDS: THIAMINE HCL 100 MG TABLET (FP) PO SCH (21:20)
[2022-09-03] MEDS: SUVOREXANT 5 MG TABLET PO PRN (21:21)
[2022-09-03] MEDS: RIFAXIMIN 550 MG TABLET PO SCH (22:44)
[2022-09-04] MEDS: methaDONE 80 MG, methaDONE 20 MG PO SCH (05:58)
[2022-09-04] MEDS: GABAPENTIN 100 MG CAPSULE PO SCH ×3 (05:58→21:27)
[2022-09-04] MEDS: PRENATAL VITAMINS W/ FOLIC ACID TABLET (FP) PO SCH (09:53)
[2022-09-04] MEDS: RIFAXIMIN 550 MG TABLET PO SCH ×2 (09:53→21:27)
[2022-09-04] MEDS: THIAMINE HCL 100 MG TABLET (FP) PO SCH (21:27)
[2022-09-04] MEDS: SUVOREXANT 5 MG TABLET PO PRN (21:27)
[2022-09-05] MEDS: methaDONE 80 MG, methaDONE 20 MG PO SCH (06:02)
[2022-09-05] MEDS: GABAPENTIN 100 MG CAPSULE PO SCH ×3 (06:02→21:46)
[2022-09-05 06:44] VITALS: RESP 18
[2022-09-05] MEDS: PRENATAL VITAMINS W/ FOLIC ACID TABLET (FP) PO SCH (09:38)
[2022-09-05] MEDS: RIFAXIMIN 550 MG TABLET PO SCH ×2 (09:38→21:46)
[2022-09-05] MEDS: THIAMINE HCL 100 MG TABLET (FP) PO SCH (21:46)
[2022-09-05] MEDS: SUVOREXANT 5 MG TABLET PO PRN (21:47)
[2022-09-06] MEDS: GABAPENTIN 100 MG CAPSULE PO SCH ×3 (06:01→21:02)
[2022-09-06] MEDS: methaDONE 80 MG, methaDONE 20 MG PO SCH (06:01)
[2022-09-06] MEDS: NICOTINE 10 MG CARTRIDGE (INHALER) IH PRN (06:01)
[2022-09-06] MEDS: RIFAXIMIN 550 MG TABLET PO SCH ×2 (09:42→21:02)
[2022-09-06] MEDS: PRENATAL VITAMINS W/ FOLIC ACID TABLET (FP) PO SCH (09:42)
[2022-09-06] MEDS: THIAMINE HCL 100 MG TABLET (FP) PO SCH (21:02)
[2022-09-06] MEDS: SUVOREXANT 5 MG TABLET PO PRN (21:02)
[2022-09-07] MEDS: GABAPENTIN 100 MG CAPSULE PO SCH ×3 (06:00→21:16)
[2022-09-07] MEDS: methaDONE 80 MG, methaDONE 20 MG PO SCH (06:00)
[2022-09-07] MEDS: PRENATAL VITAMINS W/ FOLIC ACID TABLET (FP) PO SCH (09:30)
[2022-09-07] MEDS: RIFAXIMIN 550 MG TABLET PO SCH ×2 (09:30→21:16)
[2022-09-07] MEDS: THIAMINE HCL 100 MG TABLET (FP) PO SCH (21:16)
[2022-09-07] MEDS: SUVOREXANT 5 MG TABLET PO PRN (21:17)
[2022-09-08] MEDS: methaDONE 80 MG, methaDONE 20 MG PO SCH (05:53)
[2022-09-08] MEDS: GABAPENTIN 100 MG CAPSULE PO SCH ×3 (05:53→21:02)
[2022-09-08] MEDS: RIFAXIMIN 550 MG TABLET PO SCH ×2 (09:41→21:02)
[2022-09-08] MEDS: PRENATAL VITAMINS W/ FOLIC ACID TABLET (FP) PO SCH (09:41)
[2022-09-08] MEDS: THIAMINE HCL 100 MG TABLET (FP) PO SCH (21:02)
[2022-09-08] MEDS: SUVOREXANT 5 MG TABLET PO PRN (21:03)
[2022-09-08] MEDS ORDERED: SUVOREXANT 5 MG TABLET PO PRN (22:00)
[2022-09-09] MEDS: methaDONE 80 MG, methaDONE 20 MG PO SCH (06:08)
[2022-09-09] MEDS: GABAPENTIN 100 MG CAPSULE PO SCH ×3 (06:08→21:08)
[2022-09-09] MEDS: RIFAXIMIN 550 MG TABLET PO SCH ×2 (09:29→21:08)
[2022-09-09] MEDS: PRENATAL VITAMINS W/ FOLIC ACID TABLET (FP) PO SCH (09:29)
[2022-09-09 11:48] LABS: CALCIUM 9.3 mg/dL (8.5-10.1)
[2022-09-09 11:49] LABS: ALBUMIN 3.4 g/dl (3.4-5.0); BLOOD UREA NITROGEN 24.8 mg/dL (7-18)
[2022-09-09 11:52] LABS: CREATININE 1.3 mg/dL (0.55-1.3)
[2022-09-09 11:54] LABS: BILIRUBIN,TOTAL 0.4 mg/dL (0.2-1); TOT PROT 7.1 g/dl (6.4-8.2)
[2022-09-09] MEDS ORDERED: SODIUM POLYSTYRENE SULFONATE 15 GM/60 ML BOTTLE PO ONE (15:34)
[2022-09-09] MEDS: THIAMINE HCL 100 MG TABLET (FP) PO SCH (21:09)
[2022-09-10] MEDS: methaDONE 80 MG, methaDONE 20 MG PO SCH (06:03)
[2022-09-10] MEDS: GABAPENTIN 100 MG CAPSULE PO SCH (06:03)
[2022-09-10 06:53] VITALS: BP 121/78; PULSE 57; TEMP 97.7
[2022-09-10] MEDS: PRENATAL VITAMINS W/ FOLIC ACID TABLET (FP) PO SCH (09:42)
[2022-09-10] MEDS: RIFAXIMIN 550 MG TABLET PO SCH (09:42)
== END 2022-09-10 10:00 | disposition home or self-care (01) | DRG 772 ==
LOC: YASAS 13:04 → Y3W 19:18
PROVIDERS: ADMIT Allergy & Immunology; ATTEND Psychiatry & Neurology Pain Medicine
PROC: HZ42ZZZ Group Counseling for Substance Abuse Treatment, Cognitive-Behavioral (ICD-10-PCS; principal; 2022-08-20)
DX: F11.20 Opioid dependence, uncomplicated (principal); F13.20 Sedative, hypnotic or anxiolytic dependence, uncomplicated; F14.20 Cocaine dependence, uncomplicated; F17.210 Nicotine dependence, cigarettes, uncomplicated; F19.282 Other psychoactive substance dependence with psychoactive substance-induced sleep disorder; F19.24 Other psychoactive substance dependence with psychoactive substance-induced mood disorder; F41.9 Anxiety disorder, unspecified; E72.20 Disorder of urea cycle metabolism, unspecified; E87.5 Hyperkalemia; I10 Essential (primary) hypertension; G47.00 Insomnia, unspecified
CPT/HCPCS: 36415; 80053; 81003; 82140; 85027; 86709; 86780; 86803; 87340; 93005; 93010; C9803-CS; U0003; U0005

== ENCOUNTER 2022-12-02 13:09 | Inpatient (IN) | payer OTHER ==
[2022-12-02] MEDS ORDERED: IBUPROFEN 600 MG TABLET (FP) PO PRN (17:00)
[2022-12-02] MEDS ORDERED: BENZOCAINE/MENTHOL (CHLORASEPTIC ) LOZENGE MM PRN (17:00)
[2022-12-02] MEDS ORDERED: guaiFENesin 600 MG TABLET.ER (FP) PO PRN (17:00)
[2022-12-02] MEDS ORDERED: MELATONIN 5 MG TABLETS PO PRN (17:00)
[2022-12-02] MEDS ORDERED: BISMUTH SUBSALICYLATE 524 MG/30 ML PO PRN (17:00)
[2022-12-02] MEDS ORDERED: MAG HYDROX/AL HYDROX/SIMETH 30 ML UNIT-DOSE CUP PO PRN (17:00)
[2022-12-02] MEDS ORDERED: NALOXONE HCL 0.4 MG/ML VIAL IM PRN (17:00)
[2022-12-02] MEDS ORDERED: DICYCLOMINE HCL 10 MG CAPSULE PO PRN (17:00)
[2022-12-02] MEDS ORDERED: BENZONATATE 200 MG CAPSULE PO PRN (17:00)
[2022-12-02] MEDS ORDERED: MAGNESIUM HYDROX 2400MG/30ML ORAL SUSPENSION 30 ML CUP PO PRN (17:00)
[2022-12-02] MEDS ORDERED: IBUPROFEN 400 MG TABLET (FP) PO PRN (17:00)
[2022-12-02] MEDS ORDERED: LOPERAMIDE HCL 2 MG CAPSULE PO PRN (17:00)
[2022-12-02] MEDS ORDERED: POLYETHYLENE GLYCOL (HEALTHYLAX) 3350 17 GM PACKET PO PRN (17:00)
[2022-12-02] MEDS ORDERED: NALOXONE HCL (KLOXXADO) 8 MG SPRAY NS PRN (17:00)
[2022-12-02] MEDS ORDERED: ONDANSETRON *ODT* 4 MG TABLET SL PRN (17:00)
[2022-12-02] MEDS ORDERED: P-EPHED 60MG/TRIPROLIDI 2.5MG TABLET PO PRN (17:00)
[2022-12-02] MEDS: diazePAM 5 MG TABLET PO PRN (17:54)
[2022-12-02] MEDS: THIAMINE HCL 100 MG TABLET (FP) PO SCH (23:14)
[2022-12-03] MEDS: diazePAM 5 MG TABLET PO PRN (05:39)
[2022-12-03] MEDS ORDERED: diazePAM 5 MG TABLET PO PRN (09:25)
[2022-12-03] MEDS ORDERED: methaDONE HCL 10 MG TABLET PO SCH (10:00)
[2022-12-03] MEDS: diazePAM 5 MG TABLET PO SCH ×3 (10:06→22:23)
[2022-12-03] MEDS: PRENATAL VITAMINS W/ FOLIC ACID TABLET (FP) PO SCH (10:06)
[2022-12-03] MEDS ORDERED: methaDONE 80 MG, methaDONE 20 MG PO ONE (10:15)
[2022-12-03 10:52] LABS: HEMATOCRIT 41.3 % (35.4-49); HEMOGLOBIN 14.3 GM/dL (11.7-16.9); MCH 32.2 pg (25.7-33.7); MCHC 34.5 g/dl (32.0-35.9); MEAN CELL VOLUME 93.3 fl (80-96); PLATELET COUNT 182 10^3/uL (134-434); RBC 4.43 M/mm3 (4.00-5.60); RDW 13.6 % (11.9-15.9); WHITE BLOOD COUNT 6.1 K/mm3 (4.0-10.0)
[2022-12-03 11:37] LABS: ALBUMIN 3.6 g/dl (3.4-5.0); CALCIUM 9.3 mg/dL (8.5-10.1)
[2022-12-03 11:40] LABS: CREATININE 1.2 mg/dL (0.55-1.3)
[2022-12-03 11:42] LABS: BILIRUBIN,TOTAL 0.7 mg/dL (0.2-1); TOT PROT 7.5 g/dl (6.4-8.2)
[2022-12-03] MEDS: GABAPENTIN 100 MG CAPSULE PO SCH ×2 (13:37→22:23)
[2022-12-03] MEDS: THIAMINE HCL 100 MG TABLET (FP) PO SCH (22:23)
[2022-12-03] MEDS: SUVOREXANT 10 MG TABLET PO PRN (22:24)
[2022-12-04] MEDS: methaDONE 80 MG, methaDONE 20 MG PO SCH (05:14)
[2022-12-04] MEDS: GABAPENTIN 100 MG CAPSULE PO SCH ×3 (05:15→22:21)
[2022-12-04] MEDS: diazePAM 5 MG TABLET PO SCH ×4 (05:15→22:22)
[2022-12-04] MEDS: PRENATAL VITAMINS W/ FOLIC ACID TABLET (FP) PO SCH (10:04)
[2022-12-04 11:17] LABS: BLOOD UREA NITROGEN 18.1 mg/dL (7-18)
[2022-12-04 11:20] LABS: CREATININE 1.1 mg/dL (0.55-1.3)
[2022-12-04] MEDS: hydrOXYzine PAMOATE 25 MG CAPSULE (FP) PO PRN (18:11)
[2022-12-04] MEDS: SUVOREXANT 10 MG TABLET PO PRN (22:21)
[2022-12-04] MEDS: THIAMINE HCL 100 MG TABLET (FP) PO SCH (22:23)
[2022-12-05] MEDS: methaDONE 80 MG, methaDONE 20 MG PO SCH (05:11)
[2022-12-05] MEDS: GABAPENTIN 100 MG CAPSULE PO SCH ×3 (05:11→22:21)
[2022-12-05] MEDS: diazePAM 5 MG TABLET PO SCH ×3 (05:11→22:22)
[2022-12-05] MEDS: PRENATAL VITAMINS W/ FOLIC ACID TABLET (FP) PO SCH (10:05)
[2022-12-05] MEDS: THIAMINE HCL 100 MG TABLET (FP) PO SCH (22:21)
[2022-12-05] MEDS: hydrOXYzine PAMOATE 25 MG CAPSULE (FP) PO PRN (22:21)
[2022-12-05] MEDS: SUVOREXANT 10 MG TABLET PO PRN (22:21)
[2022-12-06] MEDS: methaDONE 80 MG, methaDONE 20 MG PO SCH (05:48)
[2022-12-06] MEDS: GABAPENTIN 100 MG CAPSULE PO SCH ×3 (05:48→22:02)
[2022-12-06] MEDS: diazePAM 5 MG TABLET PO SCH ×2 (05:48→17:21)
[2022-12-06] MEDS: PRENATAL VITAMINS W/ FOLIC ACID TABLET (FP) PO SCH (10:39)
[2022-12-06 20:46] VITALS: RESP 18
[2022-12-06] MEDS: SUVOREXANT 10 MG TABLET PO PRN (22:01)
[2022-12-06] MEDS: THIAMINE HCL 100 MG TABLET (FP) PO SCH (22:02)
[2022-12-07] MEDS: methaDONE 80 MG, methaDONE 20 MG PO SCH (05:39)
[2022-12-07] MEDS: GABAPENTIN 100 MG CAPSULE PO SCH (05:39)
[2022-12-07] MEDS ORDERED: diazePAM 5 MG TABLET PO ONE (06:00)
[2022-12-07 10:12] VITALS: BP 141/91; PULSE 51; TEMP 97.8
[2022-12-07] MEDS: PRENATAL VITAMINS W/ FOLIC ACID TABLET (FP) PO SCH (10:34)
== END 2022-12-07 11:35 | disposition other institution (70) | DRG 773 ==
LOC: YASAS 13:09 → Y6N 17:10
PROVIDERS: ADMIT Allergy & Immunology; ATTEND Surgery
PROC: HZ2ZZZZ Detoxification Services for Substance Abuse Treatment (ICD-10-PCS; principal; 2022-12-02)
DX: F10.230 Alcohol dependence with withdrawal, uncomplicated (principal); F11.20 Opioid dependence, uncomplicated; F14.20 Cocaine dependence, uncomplicated; F13.20 Sedative, hypnotic or anxiolytic dependence, uncomplicated; F17.210 Nicotine dependence, cigarettes, uncomplicated; F19.280 Other psychoactive substance dependence with psychoactive substance-induced anxiety disorder; F19.282 Other psychoactive substance dependence with psychoactive substance-induced sleep disorder; F41.9 Anxiety disorder, unspecified; E87.5 Hyperkalemia; I10 Essential (primary) hypertension
CPT/HCPCS: 36415; 80048; 80053; 85027; 86780; C9803-CS; U0003; U0005

== ENCOUNTER 2023-02-11 15:47 | Inpatient (IN) | payer OTHER ==
[2023-02-11 16:45] VITALS: BMI 20.2
[2023-02-11] MEDS ORDERED: BISMUTH SUBSALICYLATE 524 MG/30 ML PO PRN (18:31)
[2023-02-11] MEDS ORDERED: POLYETHYLENE GLYCOL (HEALTHYLAX) 3350 17 GM PACKET PO PRN (18:31)
[2023-02-11] MEDS ORDERED: BENZONATATE 200 MG CAPSULE PO PRN (18:31)
[2023-02-11] MEDS ORDERED: NALOXONE HCL 0.4 MG/ML VIAL IM PRN (18:31)
[2023-02-11] MEDS ORDERED: IBUPROFEN 600 MG TABLET (FP) PO PRN (18:31)
[2023-02-11] MEDS ORDERED: ONDANSETRON *ODT* 4 MG TABLET SL PRN (18:31)
[2023-02-11] MEDS ORDERED: ACETAMINOPHEN 325 MG TABLET (FP) PO PRN (18:31)
[2023-02-11] MEDS ORDERED: NALOXONE HCL (KLOXXADO) 8 MG SPRAY NS PRN (18:31)
[2023-02-11] MEDS ORDERED: DICYCLOMINE HCL 10 MG CAPSULE PO PRN (18:31)
[2023-02-11] MEDS ORDERED: guaiFENesin 600 MG TABLET.ER (FP) PO PRN (18:31)
[2023-02-11] MEDS ORDERED: NICOTINE POLACRILEX 2 MG GUM BUC PRN (18:31)
[2023-02-11] MEDS ORDERED: BENZOCAINE/MENTHOL (CHLORASEPTIC ) LOZENGE MM PRN (18:31)
[2023-02-11] MEDS ORDERED: NICOTINE 10 MG CARTRIDGE (INHALER) IH PRN (18:31)
[2023-02-11] MEDS ORDERED: MAGNESIUM HYDROX 2400MG/30ML ORAL SUSPENSION 30 ML CUP PO PRN (18:31)
[2023-02-11] MEDS ORDERED: LOPERAMIDE HCL 2 MG CAPSULE PO PRN (18:31)
[2023-02-11] MEDS ORDERED: MAG HYDROX/AL HYDROX/SIMETH 30 ML UNIT-DOSE CUP PO PRN (18:31)
[2023-02-11] MEDS ORDERED: IBUPROFEN 400 MG TABLET (FP) PO PRN (18:31)
[2023-02-11] MEDS: MELATONIN 5 MG TABLETS PO SCH (22:51)
[2023-02-11] MEDS: diazePAM 5 MG TABLET PO SCH (22:51)
[2023-02-11] MEDS: THIAMINE HCL 100 MG TABLET (FP) PO SCH (22:51)
[2023-02-12] MEDS: diazePAM 5 MG TABLET PO SCH ×4 (05:34→22:14)
[2023-02-12] MEDS ORDERED: methaDONE HCL 10 MG TABLET PO SCH (07:21)
[2023-02-12] MEDS: PRENATAL VITAMINS W/ FOLIC ACID TABLET (FP) PO SCH (10:19)
[2023-02-12 12:38] LABS: HEMATOCRIT 38.2 % (35.4-49); HEMOGLOBIN 12.8 GM/dL (11.7-16.9); MCH 31.2 pg (25.7-33.7); MCHC 33.5 g/dl (32.0-35.9); MEAN CELL VOLUME 93.2 fl (80-96); MEAN PLT VOLUME 9.9 fl (7.5-11.1); PLATELET COUNT 160 10^3/uL (134-434); POTASSIUM 4.6 mmol/L (3.5-5.1); RDW 13.4 % (11.9-15.9); WHITE BLOOD COUNT 5.6 K/mm3 (4.0-10.0)
[2023-02-12 12:42] LABS: ALBUMIN 3.1 g/dl (3.4-5.0); BLOOD UREA NITROGEN 25.3 mg/dL (7-18)
[2023-02-12 12:45] LABS: CREATININE 1.6 mg/dL (0.55-1.3)
[2023-02-12 12:46] LABS: TOT PROT 6.3 g/dl (6.4-8.2)
[2023-02-12 12:47] LABS: BILIRUBIN,TOTAL 0.2 mg/dL (0.2-1)
[2023-02-12] MEDS ORDERED: methaDONE HCL 10 MG TABLET PO ONE (13:19)
[2023-02-12] MEDS: THIAMINE HCL 100 MG TABLET (FP) PO SCH (22:14)
[2023-02-12] MEDS: MELATONIN 5 MG TABLETS PO SCH (22:16)
[2023-02-13] MEDS: diazePAM 5 MG TABLET PO SCH ×3 (05:29→22:09)
[2023-02-13] MEDS: METHOCARBAMOL 500 MG TABLET PO PRN (10:12)
[2023-02-13] MEDS: diazePAM 5 MG TABLET PO PRN (10:12)
[2023-02-13] MEDS: PRENATAL VITAMINS W/ FOLIC ACID TABLET (FP) PO SCH (10:12)
[2023-02-13] MEDS: hydrOXYzine PAMOATE 25 MG CAPSULE (FP) PO PRN (10:12)
[2023-02-13] MEDS: GABAPENTIN 300 MG CAPSULE PO SCH ×2 (13:22→22:09)
[2023-02-13] MEDS ORDERED: SUVOREXANT 10 MG TABLET PO PRN (22:00)
[2023-02-13] MEDS: THIAMINE HCL 100 MG TABLET (FP) PO SCH (22:09)
[2023-02-14] MEDS: diazePAM 5 MG TABLET PO SCH ×2 (05:16→17:22)
[2023-02-14] MEDS: GABAPENTIN 300 MG CAPSULE PO SCH ×3 (05:16→22:10)
[2023-02-14] MEDS: METHOCARBAMOL 500 MG TABLET PO PRN ×2 (05:26→22:10)
[2023-02-14] MEDS: PRENATAL VITAMINS W/ FOLIC ACID TABLET (FP) PO SCH (10:12)
[2023-02-14] MEDS: diazePAM 5 MG TABLET PO PRN (10:13)
[2023-02-14] MEDS: hydrOXYzine PAMOATE 25 MG CAPSULE (FP) PO PRN ×2 (10:13→22:10)
[2023-02-14 10:44] LABS: POTASSIUM 5.7 mmol/L (3.5-5.1)
[2023-02-14 10:49] LABS: BLOOD UREA NITROGEN 21.6 mg/dL (7-18); CALCIUM 8.8 mg/dL (8.5-10.1)
[2023-02-14 10:50] LABS: ALBUMIN 3.3 g/dl (3.4-5.0)
[2023-02-14 10:52] LABS: CREATININE 1.3 mg/dL (0.55-1.3)
[2023-02-14] MEDS ORDERED: SODIUM POLYSTYRENE SULFONATE 15 GM/60 ML BOTTLE PO ONE (10:53)
[2023-02-14 10:54] LABS: BILIRUBIN,TOTAL 0.3 mg/dL (0.2-1); TOT PROT 6.8 g/dl (6.4-8.2)
[2023-02-14] MEDS: THIAMINE HCL 100 MG TABLET (FP) PO SCH (22:10)
[2023-02-15] MEDS: GABAPENTIN 300 MG CAPSULE PO SCH (05:18)
[2023-02-15] MEDS ORDERED: diazePAM 5 MG TABLET PO ONE (06:00)
[2023-02-15 06:39] VITALS: TEMP 97.8
[2023-02-15 09:31] VITALS: BP 114/71; PULSE 59; RESP 17
[2023-02-15] MEDS: PRENATAL VITAMINS W/ FOLIC ACID TABLET (FP) PO SCH (09:47)
== END 2023-02-15 10:58 | disposition home or self-care (01) | DRG 773 ==
LOC: YASAS 15:47 → Y6N 21:53
PROVIDERS: ADMIT Allergy & Immunology; ATTEND Surgery
PROC: HZ2ZZZZ Detoxification Services for Substance Abuse Treatment (ICD-10-PCS; principal; 2023-02-11)
DX: F10.230 Alcohol dependence with withdrawal, uncomplicated (principal); F13.230 Sedative, hypnotic or anxiolytic dependence with withdrawal, uncomplicated; F11.20 Opioid dependence, uncomplicated; F17.210 Nicotine dependence, cigarettes, uncomplicated; F19.280 Other psychoactive substance dependence with psychoactive substance-induced anxiety disorder; F19.282 Other psychoactive substance dependence with psychoactive substance-induced sleep disorder; F41.9 Anxiety disorder, unspecified; E87.5 Hyperkalemia
CPT/HCPCS: 36415; 71046-TC-FY; 80053; 84132; 85027; 86780; 87635; 87811

== ENCOUNTER 2023-07-03 17:55 | Inpatient (IN) | payer OTHER ==
[2023-07-03 18:54] VITALS: BMI 20.7
[2023-07-03] MEDS ORDERED: IBUPROFEN 600 MG TABLET (FP) PO PRN (21:44)
[2023-07-03] MEDS ORDERED: NALOXONE HCL (KLOXXADO) 8 MG SPRAY NS PRN (21:44)
[2023-07-03] MEDS ORDERED: NALOXONE HCL 0.4 MG/ML VIAL IM PRN (21:44)
[2023-07-03] MEDS ORDERED: guaiFENesin 600 MG TABLET.ER (FP) PO PRN (21:44)
[2023-07-03] MEDS ORDERED: MAGNESIUM HYDROX 2400MG/30ML ORAL SUSPENSION 30 ML CUP PO PRN (21:44)
[2023-07-03] MEDS ORDERED: POLYETHYLENE GLYCOL (HEALTHYLAX) 3350 17 GM PACKET PO PRN (21:44)
[2023-07-03] MEDS ORDERED: LOPERAMIDE HCL 2 MG CAPSULE PO PRN (21:44)
[2023-07-03] MEDS ORDERED: MAG HYDROX/AL HYDROX/SIMETH 30 ML UNIT-DOSE CUP PO PRN (21:44)
[2023-07-03] MEDS ORDERED: DICYCLOMINE HCL 10 MG CAPSULE PO PRN (21:44)
[2023-07-03] MEDS ORDERED: P-EPHED 60MG/TRIPROLIDI 2.5MG TABLET PO PRN (21:44)
[2023-07-03] MEDS ORDERED: BENZONATATE 200 MG CAPSULE PO PRN (21:44)
[2023-07-03] MEDS ORDERED: ONDANSETRON *ODT* 4 MG TABLET SL PRN (21:44)
[2023-07-03] MEDS ORDERED: BENZOCAINE/MENTHOL (CHLORASEPTIC ) LOZENGE MM PRN (21:44)
[2023-07-03] MEDS ORDERED: BISMUTH SUBSALICYLATE 524 MG/30 ML PO PRN (21:44)
[2023-07-03] MEDS ORDERED: IBUPROFEN 400 MG TABLET (FP) PO PRN (21:44)
[2023-07-03] MEDS ORDERED: ACETAMINOPHEN 325 MG TABLET (FP) PO PRN (21:44)
[2023-07-03] MEDS ORDERED: MELATONIN 5 MG TABLETS ONE (23:05)
[2023-07-03] MEDS ORDERED: PRENATAL VITAMINS W/ FOLIC ACID TABLET (FP) PO ONE (23:05)
[2023-07-03] MEDS: THIAMINE HCL 100 MG TABLET (FP) PO SCH (23:08)
[2023-07-03] MEDS: MELATONIN 5 MG TABLETS PO SCH (23:08)
[2023-07-03] MEDS ORDERED: cloNIDine HCL 0.1 MG TABLET PO ONE (23:24)
[2023-07-04] MEDS: hydrOXYzine PAMOATE 25 MG CAPSULE (FP) PO PRN ×2 (10:27→22:19)
[2023-07-04] MEDS: PRENATAL VITAMINS W/ FOLIC ACID TABLET (FP) PO SCH (10:59)
[2023-07-04 12:09] LABS: POTASSIUM 5.3 mmol/L (3.5-5.1)
[2023-07-04 12:15] LABS: HEMATOCRIT 37.1 % (35.4-49); HEMOGLOBIN 12.8 GM/dL (11.7-16.9); MCH 32.1 pg (25.7-33.7); MCHC 34.5 g/dl (32.0-35.9); MEAN CELL VOLUME 93.1 fl (80-96); PLATELET COUNT 135 10^3/uL (134-434); RBC 3.98 M/mm3 (4.00-5.60); RDW 13.2 % (11.9-15.9); WHITE BLOOD COUNT 4.3 K/mm3 (4.0-10.0)
[2023-07-04 12:15] LABS: ALBUMIN 3.1 g/dl (3.4-5.0); BLOOD UREA NITROGEN 11.9 mg/dL (7-18)
[2023-07-04 12:18] LABS: CREATININE 1.3 mg/dL (0.55-1.3)
[2023-07-04 12:20] LABS: BILIRUBIN,TOTAL 0.4 mg/dL (0.2-1); TOT PROT 6.2 g/dl (6.4-8.2)
[2023-07-04] MEDS ORDERED: SODIUM POLYSTYRENE SULFONATE 15 GM/60 ML BOTTLE PO ONE (13:58)
[2023-07-04] MEDS: methaDONE HCL 40 MG DISPERSABLE TABLET PO SCH (14:15)
[2023-07-04] MEDS: THIAMINE HCL 100 MG TABLET (FP) PO SCH (22:19)
[2023-07-04] MEDS: MELATONIN 5 MG TABLETS PO SCH (22:19)
[2023-07-04] MEDS: METHOCARBAMOL 500 MG TABLET PO PRN (22:20)
[2023-07-05] MEDS: methaDONE HCL 40 MG DISPERSABLE TABLET PO SCH (05:21)
[2023-07-05] MEDS: hydrOXYzine PAMOATE 25 MG CAPSULE (FP) PO PRN ×2 (05:24→22:04)
[2023-07-05] MEDS: PRENATAL VITAMINS W/ FOLIC ACID TABLET (FP) PO SCH (10:19)
[2023-07-05] MEDS: METHOCARBAMOL 500 MG TABLET PO PRN (10:20)
[2023-07-05] MEDS: propRANOLol HCL 10 MG TABLET PO SCH (12:05)
[2023-07-05] MEDS: GABAPENTIN 300 MG CAPSULE PO SCH ×2 (15:21→22:04)
[2023-07-05] MEDS ORDERED: SUVOREXANT 10 MG TABLET PO PRN (22:00)
[2023-07-05] MEDS: THIAMINE HCL 100 MG TABLET (FP) PO SCH (22:04)
[2023-07-06] MEDS: GABAPENTIN 300 MG CAPSULE PO SCH (05:59)
[2023-07-06] MEDS: methaDONE HCL 40 MG DISPERSABLE TABLET PO SCH (05:59)
[2023-07-06 06:15] VITALS: RESP 18
[2023-07-06 09:11] VITALS: BP 161/97; PULSE 62; TEMP 97.3
[2023-07-06] MEDS: propRANOLol HCL 10 MG TABLET PO SCH (10:24)
[2023-07-06] MEDS: PRENATAL VITAMINS W/ FOLIC ACID TABLET (FP) PO SCH (10:24)
[2023-07-06] MEDS: hydrOXYzine PAMOATE 25 MG CAPSULE (FP) PO PRN (10:26)
== END 2023-07-06 12:52 | disposition other institution (70) | DRG 773 ==
LOC: YASAS 17:55 → Y3N 22:46
PROVIDERS: ADMIT Allergy & Immunology; ATTEND Surgery
PROC: HZ2ZZZZ Detoxification Services for Substance Abuse Treatment (ICD-10-PCS; principal; 2023-07-03)
DX: F13.20 Sedative, hypnotic or anxiolytic dependence, uncomplicated (principal); F11.20 Opioid dependence, uncomplicated; F10.20 Alcohol dependence, uncomplicated; F14.20 Cocaine dependence, uncomplicated; F17.210 Nicotine dependence, cigarettes, uncomplicated; F19.280 Other psychoactive substance dependence with psychoactive substance-induced anxiety disorder; F41.9 Anxiety disorder, unspecified; E87.5 Hyperkalemia; I10 Essential (primary) hypertension
CPT/HCPCS: 36415; 80053; 84132; 85027; 86780; 87635

== ENCOUNTER 2023-07-06 13:02 | Inpatient (IN) | payer OTHER ==
[2023-07-06] MEDS ORDERED: METHOCARBAMOL 500 MG TABLET PO PRN (14:02)
[2023-07-06] MEDS ORDERED: MAGNESIUM HYDROX 2400MG/30ML ORAL SUSPENSION 30 ML CUP PO PRN (14:02)
[2023-07-06] MEDS ORDERED: IBUPROFEN 400 MG TABLET (FP) PO PRN (14:02)
[2023-07-06] MEDS ORDERED: BENZOCAINE/MENTHOL (CHLORASEPTIC ) LOZENGE MM PRN (14:02)
[2023-07-06] MEDS ORDERED: BENZONATATE 200 MG CAPSULE PO PRN (14:02)
[2023-07-06] MEDS ORDERED: NICOTINE 14 MG/24 HOURS TOPICAL PATCH TD PRN (14:02)
[2023-07-06] MEDS ORDERED: NICOTINE POLACRILEX 4 MG GUM BUC PRN (14:02)
[2023-07-06] MEDS ORDERED: MAG HYDROX/AL HYDROX/SIMETH 30 ML UNIT-DOSE CUP PO PRN (14:02)
[2023-07-06] MEDS ORDERED: IBUPROFEN 600 MG TABLET (FP) PO PRN (14:02)
[2023-07-06] MEDS ORDERED: NALOXONE HCL 0.4 MG/ML VIAL IVPUSH PRN (14:02)
[2023-07-06] MEDS ORDERED: NALOXONE HCL (KLOXXADO) 8 MG SPRAY NS PRN (14:02)
[2023-07-06] MEDS ORDERED: LOPERAMIDE HCL 2 MG CAPSULE PO PRN (14:02)
[2023-07-06] MEDS ORDERED: COLLOIDAL OATMEAL 1 BAR EACH TP PRN (14:02)
[2023-07-06] MEDS ORDERED: POLYETHYLENE GLYCOL (HEALTHYLAX) 3350 17 GM PACKET PO PRN (14:02)
[2023-07-06] MEDS ORDERED: guaiFENesin 600 MG TABLET.ER (FP) PO PRN (14:02)
[2023-07-06] MEDS ORDERED: AMMONIUM LACTATE 12% LOTION 225 GM BOTTLE TP PRN (14:02)
[2023-07-06] MEDS: THIAMINE HCL 100 MG TABLET (FP) PO SCH (21:14)
[2023-07-06] MEDS: MELATONIN 5 MG TABLETS PO SCH (21:14)
[2023-07-06] MEDS: GABAPENTIN 100 MG CAPSULE PO SCH (21:15)
[2023-07-06] MEDS: hydrOXYzine PAMOATE 25 MG CAPSULE (FP) PO PRN (21:15)
[2023-07-07] MEDS: GABAPENTIN 100 MG CAPSULE PO SCH ×2 (06:16→13:06)
[2023-07-07] MEDS: hydrOXYzine PAMOATE 25 MG CAPSULE (FP) PO PRN ×3 (06:16→21:03)
[2023-07-07] MEDS: methaDONE HCL 40 MG DISPERSABLE TABLET PO SCH (06:16)
[2023-07-07] MEDS: propRANOLol HCL 10 MG TABLET PO SCH ×2 (07:58→10:05)
[2023-07-07] MEDS: PRENATAL VITAMINS W/ FOLIC ACID TABLET (FP) PO SCH (09:31)
[2023-07-07] MEDS: ACETAMINOPHEN 325 MG TABLET (FP) PO PRN ×2 (09:33→14:43)
[2023-07-07] MEDS ORDERED: FLU VACCINE (FLULAVAL) PF 60 MCG/0.5 ML SYRINGE 2023-2024 IM ONE (12:00)
[2023-07-07] MEDS: amLODIPine BESYLATE 2.5 MG TABLET (FP) PO SCH (16:12)
[2023-07-07] MEDS: HYDROCHLOROTHIAZIDE 12.5 MG CAPSULE (FP) PO SCH (18:04)
[2023-07-07] MEDS: THIAMINE HCL 100 MG TABLET (FP) PO SCH (21:03)
[2023-07-07] MEDS: LACTULOSE 20 GM/30 ML UDC (FOR ORAL USE ONLY) PO SCH (21:03)
[2023-07-07] MEDS: MELATONIN 5 MG TABLETS PO SCH (21:04)
[2023-07-07] MEDS: SUVOREXANT 10 MG TABLET PO PRN (21:05)
[2023-07-07] MEDS: GABAPENTIN 300 MG CAPSULE PO SCH (21:05)
[2023-07-08] MEDS: methaDONE HCL 40 MG DISPERSABLE TABLET PO SCH (06:06)
[2023-07-08] MEDS: LACTULOSE 20 GM/30 ML UDC (FOR ORAL USE ONLY) PO SCH ×3 (06:06→21:04)
[2023-07-08] MEDS: GABAPENTIN 300 MG CAPSULE PO SCH ×3 (06:06→21:04)
[2023-07-08] MEDS: hydrOXYzine PAMOATE 25 MG CAPSULE (FP) PO PRN ×2 (06:08→21:05)
[2023-07-08] MEDS: HYDROCHLOROTHIAZIDE 12.5 MG CAPSULE (FP) PO SCH (09:54)
[2023-07-08] MEDS: amLODIPine BESYLATE 2.5 MG TABLET (FP) PO SCH (09:54)
[2023-07-08] MEDS: propRANOLol HCL 10 MG TABLET PO SCH (09:55)
[2023-07-08] MEDS: PRENATAL VITAMINS W/ FOLIC ACID TABLET (FP) PO SCH (09:55)
[2023-07-08] MEDS: MELATONIN 5 MG TABLETS PO SCH (21:04)
[2023-07-08] MEDS: THIAMINE HCL 100 MG TABLET (FP) PO SCH (21:04)
[2023-07-08] MEDS: SUVOREXANT 10 MG TABLET PO PRN (21:05)
[2023-07-09] MEDS: methaDONE HCL 40 MG DISPERSABLE TABLET PO SCH (06:08)
[2023-07-09] MEDS: hydrOXYzine PAMOATE 25 MG CAPSULE (FP) PO PRN ×2 (06:09→21:10)
[2023-07-09] MEDS: GABAPENTIN 300 MG CAPSULE PO SCH ×3 (06:09→21:10)
[2023-07-09] MEDS: LACTULOSE 20 GM/30 ML UDC (FOR ORAL USE ONLY) PO SCH ×3 (06:18→21:10)
[2023-07-09] MEDS: HYDROCHLOROTHIAZIDE 12.5 MG CAPSULE (FP) PO SCH (09:32)
[2023-07-09] MEDS: PRENATAL VITAMINS W/ FOLIC ACID TABLET (FP) PO SCH (09:33)
[2023-07-09] MEDS: propRANOLol HCL 10 MG TABLET PO SCH (09:33)
[2023-07-09] MEDS: amLODIPine BESYLATE 2.5 MG TABLET (FP) PO SCH (09:33)
[2023-07-09] MEDS: THIAMINE HCL 100 MG TABLET (FP) PO SCH (21:10)
[2023-07-09] MEDS: MELATONIN 5 MG TABLETS PO SCH (21:10)
[2023-07-09] MEDS ORDERED: SUVOREXANT 10 MG TABLET PO PRN (22:00)
[2023-07-10] MEDS: hydrOXYzine PAMOATE 25 MG CAPSULE (FP) PO PRN ×2 (06:14→21:08)
[2023-07-10] MEDS: GABAPENTIN 300 MG CAPSULE PO SCH ×3 (06:14→21:07)
[2023-07-10] MEDS: methaDONE HCL 40 MG DISPERSABLE TABLET PO SCH (06:14)
[2023-07-10] MEDS: amLODIPine BESYLATE 2.5 MG TABLET (FP) PO SCH (09:58)
[2023-07-10] MEDS: LACTULOSE 20 GM/30 ML UDC (FOR ORAL USE ONLY) PO SCH ×2 (09:58→21:06)
[2023-07-10] MEDS: HYDROCHLOROTHIAZIDE 12.5 MG CAPSULE (FP) PO SCH (09:58)
[2023-07-10] MEDS: PRENATAL VITAMINS W/ FOLIC ACID TABLET (FP) PO SCH (09:58)
[2023-07-10] MEDS: propRANOLol HCL 10 MG TABLET PO SCH (09:58)
[2023-07-10] MEDS: MELATONIN 5 MG TABLETS PO SCH (21:06)
[2023-07-10] MEDS: THIAMINE HCL 100 MG TABLET (FP) PO SCH (21:06)
[2023-07-11] MEDS: methaDONE HCL 40 MG DISPERSABLE TABLET PO SCH (06:24)
[2023-07-11] MEDS: GABAPENTIN 300 MG CAPSULE PO SCH ×3 (06:24→21:03)
[2023-07-11] MEDS: hydrOXYzine PAMOATE 25 MG CAPSULE (FP) PO PRN (06:25)
[2023-07-11] MEDS: HYDROCHLOROTHIAZIDE 12.5 MG CAPSULE (FP) PO SCH (09:31)
[2023-07-11] MEDS: LACTULOSE 20 GM/30 ML UDC (FOR ORAL USE ONLY) PO SCH ×2 (09:32→21:04)
[2023-07-11] MEDS: amLODIPine BESYLATE 2.5 MG TABLET (FP) PO SCH (09:32)
[2023-07-11] MEDS: propRANOLol HCL 10 MG TABLET PO SCH (09:32)
[2023-07-11] MEDS: PRENATAL VITAMINS W/ FOLIC ACID TABLET (FP) PO SCH (09:32)
[2023-07-11] MEDS: MELATONIN 5 MG TABLETS PO SCH (21:04)
[2023-07-11] MEDS: THIAMINE HCL 100 MG TABLET (FP) PO SCH (21:04)
[2023-07-12] MEDS: hydrOXYzine PAMOATE 25 MG CAPSULE (FP) PO PRN ×2 (06:10→21:09)
[2023-07-12] MEDS: GABAPENTIN 300 MG CAPSULE PO SCH ×3 (06:11→21:09)
[2023-07-12] MEDS: methaDONE HCL 40 MG DISPERSABLE TABLET PO SCH (06:11)
[2023-07-12] MEDS: HYDROCHLOROTHIAZIDE 12.5 MG CAPSULE (FP) PO SCH (09:41)
[2023-07-12] MEDS: propRANOLol HCL 10 MG TABLET PO SCH (09:41)
[2023-07-12] MEDS: amLODIPine BESYLATE 2.5 MG TABLET (FP) PO SCH (09:41)
[2023-07-12] MEDS: LACTULOSE 20 GM/30 ML UDC (FOR ORAL USE ONLY) PO SCH ×2 (09:41→21:08)
[2023-07-12] MEDS: PRENATAL VITAMINS W/ FOLIC ACID TABLET (FP) PO SCH (09:42)
[2023-07-12] MEDS: MELATONIN 5 MG TABLETS PO SCH (21:09)
[2023-07-12] MEDS: THIAMINE HCL 100 MG TABLET (FP) PO SCH (21:09)
[2023-07-13] MEDS: methaDONE HCL 40 MG DISPERSABLE TABLET PO SCH (06:31)
[2023-07-13] MEDS: hydrOXYzine PAMOATE 25 MG CAPSULE (FP) PO PRN ×2 (06:32→21:02)
[2023-07-13] MEDS: GABAPENTIN 300 MG CAPSULE PO SCH ×3 (06:32→21:02)
[2023-07-13] MEDS: LACTULOSE 20 GM/30 ML UDC (FOR ORAL USE ONLY) PO SCH ×2 (09:44→21:02)
[2023-07-13] MEDS: amLODIPine BESYLATE 2.5 MG TABLET (FP) PO SCH (09:44)
[2023-07-13] MEDS: HYDROCHLOROTHIAZIDE 12.5 MG CAPSULE (FP) PO SCH (09:44)
[2023-07-13] MEDS: propRANOLol HCL 10 MG TABLET PO SCH (09:44)
[2023-07-13] MEDS: PRENATAL VITAMINS W/ FOLIC ACID TABLET (FP) PO SCH (09:44)
[2023-07-13] MEDS: MELATONIN 5 MG TABLETS PO SCH (21:01)
[2023-07-13] MEDS: THIAMINE HCL 100 MG TABLET (FP) PO SCH (21:02)
[2023-07-14] MEDS: hydrOXYzine PAMOATE 25 MG CAPSULE (FP) PO PRN ×2 (06:13→21:06)
[2023-07-14] MEDS: methaDONE HCL 40 MG DISPERSABLE TABLET PO SCH (06:13)
[2023-07-14] MEDS: GABAPENTIN 300 MG CAPSULE PO SCH ×3 (06:13→21:05)
[2023-07-14] MEDS: HYDROCHLOROTHIAZIDE 12.5 MG CAPSULE (FP) PO SCH (10:03)
[2023-07-14] MEDS: propRANOLol HCL 10 MG TABLET PO SCH (10:03)
[2023-07-14] MEDS: PRENATAL VITAMINS W/ FOLIC ACID TABLET (FP) PO SCH (10:04)
[2023-07-14] MEDS: LACTULOSE 20 GM/30 ML UDC (FOR ORAL USE ONLY) PO SCH ×2 (10:04→21:05)
[2023-07-14] MEDS: amLODIPine BESYLATE 2.5 MG TABLET (FP) PO SCH (10:04)
[2023-07-14] MEDS: THIAMINE HCL 100 MG TABLET (FP) PO SCH (21:05)
[2023-07-14] MEDS: MELATONIN 5 MG TABLETS PO SCH (21:05)
[2023-07-14] MEDS: SUVOREXANT 10 MG TABLET PO PRN (21:06)
[2023-07-15] MEDS: hydrOXYzine PAMOATE 25 MG CAPSULE (FP) PO PRN ×2 (06:33→21:03)
[2023-07-15] MEDS: GABAPENTIN 300 MG CAPSULE PO SCH ×3 (06:33→21:03)
[2023-07-15] MEDS: methaDONE HCL 40 MG DISPERSABLE TABLET PO SCH (06:33)
[2023-07-15] MEDS: propRANOLol HCL 10 MG TABLET PO SCH (09:40)
[2023-07-15] MEDS: LACTULOSE 20 GM/30 ML UDC (FOR ORAL USE ONLY) PO SCH ×2 (09:40→21:03)
[2023-07-15] MEDS: PRENATAL VITAMINS W/ FOLIC ACID TABLET (FP) PO SCH (09:40)
[2023-07-15] MEDS: HYDROCHLOROTHIAZIDE 12.5 MG CAPSULE (FP) PO SCH (09:40)
[2023-07-15] MEDS: amLODIPine BESYLATE 2.5 MG TABLET (FP) PO SCH (09:40)
[2023-07-15] MEDS: THIAMINE HCL 100 MG TABLET (FP) PO SCH (21:02)
[2023-07-15] MEDS: MELATONIN 5 MG TABLETS PO SCH (21:03)
[2023-07-15] MEDS: SUVOREXANT 10 MG TABLET PO PRN (21:03)
[2023-07-16] MEDS: GABAPENTIN 300 MG CAPSULE PO SCH ×3 (06:24→21:21)
[2023-07-16] MEDS: methaDONE HCL 40 MG DISPERSABLE TABLET PO SCH (06:24)
[2023-07-16] MEDS: hydrOXYzine PAMOATE 25 MG CAPSULE (FP) PO PRN ×2 (06:24→21:21)
[2023-07-16] MEDS: amLODIPine BESYLATE 2.5 MG TABLET (FP) PO SCH (10:06)
[2023-07-16] MEDS: LACTULOSE 20 GM/30 ML UDC (FOR ORAL USE ONLY) PO SCH ×2 (10:06→21:21)
[2023-07-16] MEDS: HYDROCHLOROTHIAZIDE 12.5 MG CAPSULE (FP) PO SCH (10:06)
[2023-07-16] MEDS: PRENATAL VITAMINS W/ FOLIC ACID TABLET (FP) PO SCH (10:06)
[2023-07-16] MEDS: propRANOLol HCL 10 MG TABLET PO SCH (10:06)
[2023-07-16] MEDS: MELATONIN 5 MG TABLETS PO SCH (21:21)
[2023-07-16] MEDS: SUVOREXANT 10 MG TABLET PO PRN (21:21)
[2023-07-16] MEDS: THIAMINE HCL 100 MG TABLET (FP) PO SCH (21:21)
[2023-07-17] MEDS: hydrOXYzine PAMOATE 25 MG CAPSULE (FP) PO PRN ×2 (06:22→21:18)
[2023-07-17] MEDS: GABAPENTIN 300 MG CAPSULE PO SCH ×3 (06:22→21:18)
[2023-07-17] MEDS: methaDONE HCL 40 MG DISPERSABLE TABLET PO SCH (06:22)
[2023-07-17] MEDS: propRANOLol HCL 10 MG TABLET PO SCH (09:29)
[2023-07-17] MEDS: amLODIPine BESYLATE 2.5 MG TABLET (FP) PO SCH (09:29)
[2023-07-17] MEDS: LACTULOSE 20 GM/30 ML UDC (FOR ORAL USE ONLY) PO SCH ×2 (09:29→21:18)
[2023-07-17] MEDS: HYDROCHLOROTHIAZIDE 12.5 MG CAPSULE (FP) PO SCH (09:29)
[2023-07-17] MEDS: PRENATAL VITAMINS W/ FOLIC ACID TABLET (FP) PO SCH (09:29)
[2023-07-17] MEDS: THIAMINE HCL 100 MG TABLET (FP) PO SCH (21:18)
[2023-07-17] MEDS: MELATONIN 5 MG TABLETS PO SCH (21:19)
[2023-07-17] MEDS: SUVOREXANT 10 MG TABLET PO PRN (21:20)
[2023-07-18] MEDS: methaDONE HCL 40 MG DISPERSABLE TABLET PO SCH (06:33)
[2023-07-18] MEDS: GABAPENTIN 300 MG CAPSULE PO SCH ×3 (06:33→21:09)
[2023-07-18] MEDS: hydrOXYzine PAMOATE 25 MG CAPSULE (FP) PO PRN ×2 (06:33→21:09)
[2023-07-18] MEDS: PRENATAL VITAMINS W/ FOLIC ACID TABLET (FP) PO SCH (09:04)
[2023-07-18] MEDS: LACTULOSE 20 GM/30 ML UDC (FOR ORAL USE ONLY) PO SCH ×2 (09:04→21:35)
[2023-07-18] MEDS: HYDROCHLOROTHIAZIDE 12.5 MG CAPSULE (FP) PO SCH (09:08)
[2023-07-18] MEDS: propRANOLol HCL 10 MG TABLET PO SCH (09:08)
[2023-07-18] MEDS: amLODIPine BESYLATE 2.5 MG TABLET (FP) PO SCH (09:08)
[2023-07-18] MEDS: THIAMINE HCL 100 MG TABLET (FP) PO SCH (21:09)
[2023-07-18] MEDS: SUVOREXANT 10 MG TABLET PO PRN (21:10)
[2023-07-18] MEDS: MELATONIN 5 MG TABLETS PO SCH (21:35)
[2023-07-19] MEDS: methaDONE HCL 40 MG DISPERSABLE TABLET PO SCH (06:12)
[2023-07-19] MEDS: GABAPENTIN 300 MG CAPSULE PO SCH ×3 (06:12→21:27)
[2023-07-19] MEDS: LACTULOSE 20 GM/30 ML UDC (FOR ORAL USE ONLY) PO SCH ×2 (09:52→21:28)
[2023-07-19] MEDS: propRANOLol HCL 10 MG TABLET PO SCH (09:52)
[2023-07-19] MEDS: HYDROCHLOROTHIAZIDE 12.5 MG CAPSULE (FP) PO SCH (09:52)
[2023-07-19] MEDS: PRENATAL VITAMINS W/ FOLIC ACID TABLET (FP) PO SCH (09:53)
[2023-07-19] MEDS: amLODIPine BESYLATE 2.5 MG TABLET (FP) PO SCH (09:53)
[2023-07-19] MEDS: hydrOXYzine PAMOATE 25 MG CAPSULE (FP) PO PRN ×2 (09:53→21:27)
[2023-07-19] MEDS: SUVOREXANT 10 MG TABLET PO PRN (21:27)
[2023-07-19] MEDS: THIAMINE HCL 100 MG TABLET (FP) PO SCH (21:27)
[2023-07-19] MEDS: MELATONIN 5 MG TABLETS PO SCH (21:28)
[2023-07-20] MEDS: hydrOXYzine PAMOATE 25 MG CAPSULE (FP) PO PRN ×2 (06:23→21:17)
[2023-07-20] MEDS: methaDONE HCL 40 MG DISPERSABLE TABLET PO SCH (06:23)
[2023-07-20] MEDS: GABAPENTIN 300 MG CAPSULE PO SCH ×3 (06:23→21:17)
[2023-07-20] MEDS: PRENATAL VITAMINS W/ FOLIC ACID TABLET (FP) PO SCH (09:58)
[2023-07-20] MEDS: HYDROCHLOROTHIAZIDE 12.5 MG CAPSULE (FP) PO SCH (09:58)
[2023-07-20] MEDS: propRANOLol HCL 10 MG TABLET PO SCH (09:58)
[2023-07-20] MEDS: amLODIPine BESYLATE 2.5 MG TABLET (FP) PO SCH (09:58)
[2023-07-20] MEDS: LACTULOSE 20 GM/30 ML UDC (FOR ORAL USE ONLY) PO SCH ×2 (09:58→21:18)
[2023-07-20] MEDS: THIAMINE HCL 100 MG TABLET (FP) PO SCH (21:16)
[2023-07-20] MEDS: SUVOREXANT 10 MG TABLET PO PRN (21:17)
[2023-07-20] MEDS: MELATONIN 5 MG TABLETS PO SCH (21:18)
[2023-07-21] MEDS: methaDONE HCL 40 MG DISPERSABLE TABLET PO SCH (06:11)
[2023-07-21] MEDS: hydrOXYzine PAMOATE 25 MG CAPSULE (FP) PO PRN ×2 (06:12→21:05)
[2023-07-21] MEDS: GABAPENTIN 300 MG CAPSULE PO SCH ×3 (06:12→21:05)
[2023-07-21] MEDS: propRANOLol HCL 10 MG TABLET PO SCH (10:18)
[2023-07-21] MEDS: LACTULOSE 20 GM/30 ML UDC (FOR ORAL USE ONLY) PO SCH ×2 (10:18→21:05)
[2023-07-21] MEDS: amLODIPine BESYLATE 2.5 MG TABLET (FP) PO SCH (10:18)
[2023-07-21] MEDS: HYDROCHLOROTHIAZIDE 12.5 MG CAPSULE (FP) PO SCH (10:19)
[2023-07-21] MEDS: PRENATAL VITAMINS W/ FOLIC ACID TABLET (FP) PO SCH (10:19)
[2023-07-21] MEDS: MELATONIN 5 MG TABLETS PO SCH (21:05)
[2023-07-21] MEDS: THIAMINE HCL 100 MG TABLET (FP) PO SCH (21:05)
[2023-07-21] MEDS ORDERED: SUVOREXANT 10 MG TABLET PO PRN (22:00)
[2023-07-22] MEDS: methaDONE HCL 40 MG DISPERSABLE TABLET PO SCH (07:00)
[2023-07-22] MEDS: GABAPENTIN 300 MG CAPSULE PO SCH ×3 (07:00→21:04)
[2023-07-22] MEDS: hydrOXYzine PAMOATE 25 MG CAPSULE (FP) PO PRN ×2 (07:02→21:05)
[2023-07-22] MEDS: LACTULOSE 20 GM/30 ML UDC (FOR ORAL USE ONLY) PO SCH ×2 (09:50→21:05)
[2023-07-22] MEDS: PRENATAL VITAMINS W/ FOLIC ACID TABLET (FP) PO SCH (09:50)
[2023-07-22] MEDS: HYDROCHLOROTHIAZIDE 12.5 MG CAPSULE (FP) PO SCH (09:51)
[2023-07-22] MEDS: amLODIPine BESYLATE 2.5 MG TABLET (FP) PO SCH (09:51)
[2023-07-22] MEDS: propRANOLol HCL 10 MG TABLET PO SCH (09:51)
[2023-07-22] MEDS: MELATONIN 5 MG TABLETS PO SCH (21:04)
[2023-07-22] MEDS: THIAMINE HCL 100 MG TABLET (FP) PO SCH (21:04)
[2023-07-23] MEDS: GABAPENTIN 300 MG CAPSULE PO SCH ×3 (06:14→21:04)
[2023-07-23] MEDS: hydrOXYzine PAMOATE 25 MG CAPSULE (FP) PO PRN ×2 (06:14→21:04)
[2023-07-23] MEDS: methaDONE HCL 40 MG DISPERSABLE TABLET PO SCH (06:14)
[2023-07-23] MEDS: HYDROCHLOROTHIAZIDE 12.5 MG CAPSULE (FP) PO SCH (09:59)
[2023-07-23] MEDS: PRENATAL VITAMINS W/ FOLIC ACID TABLET (FP) PO SCH (09:59)
[2023-07-23] MEDS: LACTULOSE 20 GM/30 ML UDC (FOR ORAL USE ONLY) PO SCH ×2 (09:59→21:02)
[2023-07-23] MEDS: propRANOLol HCL 10 MG TABLET PO SCH (10:00)
[2023-07-23] MEDS: amLODIPine BESYLATE 2.5 MG TABLET (FP) PO SCH (10:00)
[2023-07-23] MEDS: THIAMINE HCL 100 MG TABLET (FP) PO SCH (21:04)
[2023-07-23] MEDS: MELATONIN 5 MG TABLETS PO SCH (21:04)
[2023-07-24] MEDS: methaDONE HCL 40 MG DISPERSABLE TABLET PO SCH (06:31)
[2023-07-24] MEDS: hydrOXYzine PAMOATE 25 MG CAPSULE (FP) PO PRN ×2 (06:31→21:09)
[2023-07-24] MEDS: GABAPENTIN 300 MG CAPSULE PO SCH ×3 (06:31→21:09)
[2023-07-24] MEDS: propRANOLol HCL 10 MG TABLET PO SCH (10:28)
[2023-07-24] MEDS: PRENATAL VITAMINS W/ FOLIC ACID TABLET (FP) PO SCH (10:28)
[2023-07-24] MEDS: LACTULOSE 20 GM/30 ML UDC (FOR ORAL USE ONLY) PO SCH ×2 (10:28→21:09)
[2023-07-24] MEDS: amLODIPine BESYLATE 2.5 MG TABLET (FP) PO SCH (10:28)
[2023-07-24] MEDS: HYDROCHLOROTHIAZIDE 12.5 MG CAPSULE (FP) PO SCH (10:28)
[2023-07-24] MEDS: MELATONIN 5 MG TABLETS PO SCH (21:09)
[2023-07-24] MEDS: SUVOREXANT 10 MG TABLET PO PRN (21:09)
[2023-07-24] MEDS: THIAMINE HCL 100 MG TABLET (FP) PO SCH (21:09)
[2023-07-25] MEDS: methaDONE HCL 40 MG DISPERSABLE TABLET PO SCH (06:21)
[2023-07-25] MEDS: hydrOXYzine PAMOATE 25 MG CAPSULE (FP) PO PRN ×2 (06:21→21:09)
[2023-07-25] MEDS: GABAPENTIN 300 MG CAPSULE PO SCH ×3 (06:21→21:09)
[2023-07-25 06:37] VITALS: RESP 16
[2023-07-25] MEDS: propRANOLol HCL 10 MG TABLET PO SCH (09:27)
[2023-07-25] MEDS: HYDROCHLOROTHIAZIDE 12.5 MG CAPSULE (FP) PO SCH (09:27)
[2023-07-25] MEDS: amLODIPine BESYLATE 2.5 MG TABLET (FP) PO SCH (09:27)
[2023-07-25] MEDS: LACTULOSE 20 GM/30 ML UDC (FOR ORAL USE ONLY) PO SCH ×2 (09:27→21:09)
[2023-07-25] MEDS: PRENATAL VITAMINS W/ FOLIC ACID TABLET (FP) PO SCH (09:27)
[2023-07-25] MEDS: SUVOREXANT 10 MG TABLET PO PRN (21:09)
[2023-07-25] MEDS: MELATONIN 5 MG TABLETS PO SCH (21:09)
[2023-07-25] MEDS: THIAMINE HCL 100 MG TABLET (FP) PO SCH (21:09)
[2023-07-26] MEDS: methaDONE HCL 40 MG DISPERSABLE TABLET PO SCH (06:32)
[2023-07-26] MEDS: hydrOXYzine PAMOATE 25 MG CAPSULE (FP) PO PRN ×2 (06:33→21:11)
[2023-07-26] MEDS: GABAPENTIN 300 MG CAPSULE PO SCH ×3 (06:33→21:10)
[2023-07-26] MEDS: HYDROCHLOROTHIAZIDE 12.5 MG CAPSULE (FP) PO SCH (09:54)
[2023-07-26] MEDS: LACTULOSE 20 GM/30 ML UDC (FOR ORAL USE ONLY) PO SCH ×2 (09:54→21:11)
[2023-07-26] MEDS: amLODIPine BESYLATE 2.5 MG TABLET (FP) PO SCH (09:54)
[2023-07-26] MEDS: PRENATAL VITAMINS W/ FOLIC ACID TABLET (FP) PO SCH (09:54)
[2023-07-26] MEDS: propRANOLol HCL 10 MG TABLET PO SCH (09:55)
[2023-07-26] MEDS: THIAMINE HCL 100 MG TABLET (FP) PO SCH (21:10)
[2023-07-26] MEDS: SUVOREXANT 10 MG TABLET PO PRN (21:10)
[2023-07-26] MEDS: MELATONIN 5 MG TABLETS PO SCH (21:11)
[2023-07-27] MEDS: hydrOXYzine PAMOATE 25 MG CAPSULE (FP) PO PRN (06:46)
[2023-07-27] MEDS: methaDONE HCL 40 MG DISPERSABLE TABLET PO SCH (06:46)
[2023-07-27] MEDS: GABAPENTIN 300 MG CAPSULE PO SCH (06:46)
[2023-07-27 08:36] VITALS: TEMP 97.6
[2023-07-27 09:07] VITALS: BP 111/80; PULSE 79
[2023-07-27] MEDS: propRANOLol HCL 10 MG TABLET PO SCH (09:17)
[2023-07-27] MEDS: HYDROCHLOROTHIAZIDE 12.5 MG CAPSULE (FP) PO SCH (09:17)
[2023-07-27] MEDS: PRENATAL VITAMINS W/ FOLIC ACID TABLET (FP) PO SCH (09:17)
[2023-07-27] MEDS: amLODIPine BESYLATE 2.5 MG TABLET (FP) PO SCH (09:17)
[2023-07-27] MEDS: LACTULOSE 20 GM/30 ML UDC (FOR ORAL USE ONLY) PO SCH (09:17)
== END 2023-07-27 09:27 | disposition home or self-care (01) | DRG 772 ==
LOC: YASAS 13:02 → Y3E 13:07
PROVIDERS: ADMIT Allergy & Immunology; ATTEND Psychiatry & Neurology Pain Medicine
PROC: HZ42ZZZ Group Counseling for Substance Abuse Treatment, Cognitive-Behavioral (ICD-10-PCS; principal; 2023-07-06)
DX: F13.20 Sedative, hypnotic or anxiolytic dependence, uncomplicated (principal); F11.20 Opioid dependence, uncomplicated; F17.210 Nicotine dependence, cigarettes, uncomplicated; F19.980 Other psychoactive substance use, unspecified with psychoactive substance-induced anxiety disorder; F41.9 Anxiety disorder, unspecified; I10 Essential (primary) hypertension; E72.20 Disorder of urea cycle metabolism, unspecified
CPT/HCPCS: 36415; 82140; 86803; 90686; G0008